=== PATIENT | female | born 1975 | race Caucasian/White ===

== ENCOUNTER 2021-09-10 17:34 | Inpatient (IN) ==
[2021-09-10] MEDS ORDERED: dexAMETHasone**PF** 10 MG/ML VIAL IV ONE ×2 (18:36→18:46)
--- NOTE | 2021-09-10 18:56 | XRay Report ---
XR chest 1V portable HISTORY: 46 years-old Female covid, sob acute shortness of breath. COVID Positive. COMPARISON: None TECHNIQUE: Portable AP view of the chest FINDINGS: The cardiac silhouette is upper limits of normal in size. No pneumothorax or large pleural effusion. Interstitial coarsening with left greater than right patchy bilateral airspace opacities. No acute fr acture. IMPRESSION: Left greater than right bilateral pulmonary opacities are suggestive of viral pneumonia. ACT 112: Negative or not required by law. The above report was generated using voice recognition software. It may contain grammatical, syntax o r spelling errors. Electronically signed by: Antohny Matos M.D. 09/10/2021 6:54 PM
[2021-09-10 20:03] LABS: Mean Corpuscular Hgb Conc 34.4 g/dL (32-36)
[2021-09-10 20:10] LABS: Albumin Level 2.5 gm/dl (3.4-5.0); BUN Creatinine Ratio 15.7 (10-20); C Reactive Protein 10.9 mg/dl (0-0.29); Calcium 8.1 mg/dl (8.5-10.1); Creatinine Clr Calc Pharmacy 62.3 ml/min; Est GFR (African American) 60.9 ml/min; Est GFR (Non-African American) 52.6 ml/min; Potassium 3.8 mmol/L (3.5-5.1)
[2021-09-10 20:11] LABS: D Dimer 1510 ug/L FEU (0-500)
[2021-09-10 20:13] LABS: Albumin Globulin Ratio 0.4 (0.9-2); Bilirubin,Total 0.4 mg/dl (0.2-1); Globulin 5.6 gm/dl (2.5-4.0); Total Protein 8.1 gm/dl (6.4-8.2)
[2021-09-10] MEDS ORDERED: REMDESIVIR 200 MG in SODIUM CHLORIDE 0.9% 210 ML IV STA (20:13)
[2021-09-10 20:23] LABS: Hematocrit (blood only) 41.3 % (37-47); Hemoglobin 14.2 g/dL (12.0-16.0); Mean Corpuscular Volume 87.3 fL (80-100); RDW Standard Deviation 42.2 fL (36.4-46.3); Red Blood Count 4.73 M/uL (4.2-5.4); White Blood Count 6.28 K/uL (4.8-10.8)
[2021-09-10 20:25] LABS: Basophils # (auto) 0.01 K/uL (0-0.2); Basophils % (auto) 0.2 %; Immature Granulocytes # (auto) 0.01 K/uL (0.00-0.02); Immature Granulocytes % (auto) 0.2 %; Lymphocytes # (auto) 0.74 K/uL (1.2-3.4); Lymphocytes % (auto) 11.8 %; Mean Platelet Volume 12.9 fL (7.4-10.4); Monocytes # (auto) 0.62 K/uL (0.11-0.59); Monocytes % (auto) 9.9 %; Neutrophils % (auto) 77.9 %; Platelet Count 86 K/uL (130-400); Platelet Estimate Decreased (Normal)
[2021-09-10] MEDS ORDERED: SODIUM CHLORIDE 0.9% 500 ML IV ONE (20:31)
--- NOTE | 2021-09-10 20:37 | Emergency Department Note ---
History of Present Illness General Chief complaint: Illness Stated complaint: COV+, cough, symptoms not getting better Time Seen by Provider: 09/10/21 18:26 Source: patient Mode of arrival: ambulatory Limitations: no limitations History of Present Illness Maximum Pain Intensity: 10 This patient is a 46-year-old female with past medical history of diabetes, thyroidectomy, who presents to the emergency department for evaluation of cough and shortness of breath. Patient states symptoms have been ongoing for 4 days. She has had body aches, fevers, cough, headache and shortness of breath. She was tested for COVID-19 at [facility] 2 days ago on 09/08 and was found to be positive. Patient states her oxygen levels have been low at home. She has been taking [id number] medications for her symptoms. Home Medications Medication Instructions Recorded Confirmed Type acetaminophen 500 mg tablet 1,000 mg PO Q6H PRN 09/10/21 09/10/21 History benzonatate 100 mg capsule 100 mg PO BID 09/10/21 09/10/21 History dulaglutide 1.5 mg/0.5 mL 1.5 mg SUBCUT WK 09/10/21 09/10/21 History subcutaneous pen injector (Trulicity) ezetimibe 10 mg tablet 10 mg PO HS 09/10/21 09/10/21 History hydrochlorothiazide 12.5 mg capsule 12.5 mg PO HS 09/10/21 09/10/21 History levothyroxine 125 mcg tablet 125 mcg PO QAM 09/10/21 09/10/21 History (Synthroid) lisinopril 2.5 mg tablet 2.5 mg PO HS 09/10/21 09/10/21 History metformin 500 mg tablet,extended 1,000 mg PO HS 09/10/21 09/10/21 History release 24 hr omega-3 fatty acids-fish oil 684 1 cap PO HS 09/10/21 09/10/21 History mg-1,200 mg capsule,delayed release pseudoephedrine-ibuprofen 30 1 tab PO Q4H PRN 09/10/21 09/10/21 History mg-200 mg tablet simvastatin 10 mg tablet 10 mg PO HS 09/10/21 09/10/21 History Allergies Allergy/AdvReac Type Severity Reaction Status Date / Time Penicillins Allergy HIVES Verified 09/10/21 19:06 Past Med/Surg History Medical History Asthma IBS (irritable bowel syndrome) Type 2 diabetes mellitus Surgical History (Updated 09/10/21 @ 20:35 by Carolyn Lo PA-C) H/O thyroidectomy Social History Smoking Status: Never smoker Hx Alcohol Use: No Hx Substance Use: No Preferred Language: Bengali Communication Ability: Effective Fourth Mate Required: No Beliefs That Will Affect Care: None Current Living Situation: Significant Other Current Living Situation Comment: 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 Other Information That Helps Us Care for You: No Feels Safe at Home: Yes Safety Concerns: Feels Safe At This Time Review of Systems A total of 10 systems reviewed and were otherwise negative Physical Exam Vital Signs Vital Signs - 24 hr 09/10/21 18:15 09/10/21 19:26 Temperature 36.4 C L Temperature Source Skin Pulse Rate 100 H Pulse Rate [Finger] 88 Respiratory Rate 18 20 Pulse Oximetry 83 L 97 Oxygen Delivery Method Room Air Nasal Cannula Oxygen Flow Rate 6 Sepsis Recent Fever Within 48 Hours Yes Sepsis New/Unexplained Change in Mental Status No Sepsis Action Taken by Nursing No Action Required VITALS: Vitals are noted on the nurse's note and reviewed by myself. GENERAL: This is a 46-year-old female, acutely ill-appearing, dyspneic. SKIN: The skin was without rashes. EARS: External auditory canals clear, tympanic membranes pearly gómez without erythema or effusion bilaterally. EYES: Pupils equal round and reactive to light and accommodation. NOSE: Patent, turbinates without inflammation or discharge. MOUTH: Mucous membranes moist. Tonsils are not enlarged. Pharynx without lisha thema or exudate. NECK: Supple without nuchal rigidity. No lymphadenopathy. HEART: Regular rate and rhythm without murmurs gallops or rubs. LUNGS: Patient is dyspneic and actively coughing. Lung sounds decreased bilaterally. EXTREMITIES: No pitting edema of the lower extremities. NEURO: Patient was alert and oriented to person place and time. Course Consultations Consultation #1: Dr. Haro - [facility] [place] Administered Medications Discontinued Medications Dexamethasone Sodium Phosphate (DexamethasonePf 10 Mg/Ml Vial) 10 mg IV NOW ONE Stop: 09/10/21 18:37 Last Admin: 09/10/21 20:12 Dose: Not Given Documented by: [id number] Dexamethasone Sodium Phosphate (DexamethasonePf 10 Mg/Ml Vial) 6 mg IV NOW ONE Stop: 09/10/21 18:47 Last Admin: 09/10/21 20:12 Dose: 6 mg Documented by: [id number] Remdesivir 200 mg/ Sodium (Chloride) 250 mls @ 125 mls/hr IV ONE STA; Protocol Stop: 09/10/21 22:12 Last Admin: 09/10/21 21:00 Dose: 125 mls/hr Documented by: [id number] Sodium Chloride (Nss) 500 mls @ 999 mls/hr IV .Q31M ONE Stop: 09/10/21 21:01 Last Admin: 09/10/21 21:01 Dose: 999 mls/hr Documented by: [id number] Ioversol (Optiray 320 125ml) 120 ml IV ONCE ONE Stop: 09/10/21 20:50 Last Admin: 09/10/21 20:49 Dose: 120 ml Documented by: [id number] Medical Decision Making Differential Diagnosis COVID-19, influenza, reactive airway disease, pneumonia, pneumothorax, COPD, CHF, infections, cardiac ischemia, pulmonary embolism, musculoskeletal, gastrointestinal, as well as other pathologies. Home Medications Current Medication List: was personally reviewed by me Laboratory Data Attestation: I reviewed the patient's lab results. Result diagrams: 09/10/21 19:35 09/10/21 19:35 Lab Results 09/10/21 09/10/21 09/10/21 Range/Units 19:35 19:35 19:35 WBC 6.28 (4.8-10.8) K/uL RBC 4.73 (4.2-5.4) M/uL Hgb 14.2 (12.0-16.0) g/dL Hct 41.3 (37-47) % MCV 87.3 (80-100) fL MCH 30.0 (25-34) pg MCHC 34.4 (32-36) g/dL RDW Std Deviation 42.2 (36.4-46.3) fL RDW Coeff of Yoana 13.0 (11.5-14.5) % Plt Count 86 L (130-400) K/uL MPV 12.9 H (7.4-10.4) fL Immature Gran % (Auto) 0.2 % Neut % (Auto) 77.9 % Lymph % (Auto) 11.8 % [place] % (Auto) 9.9 % Eos % (Auto) 0.0 % Baso % (Auto) 0.2 % Neut # (Auto) 4.90 (1.4-6.5) K/uL Lymph # (Auto) 0.74 L (1.2-3.4) K/uL [place] # (Auto) 0.62 H (0.11-0.59) K/uL Eos # (Auto) 0.00 (0-0.5) K/uL Baso # (Auto) 0.01 (0-0.2) K/uL Immature Gran # (Auto) 0.01 (0.00-0.02) K/uL Platelet Estimate Decreased L (Normal) D-Dimer (0-500) ug/L FEU Sodium 134 L (136-145) mmol/L Potassium 3.8 (3.5-5.1) mmol/L Chloride 101 (98-107) mmol/L Carbon Dioxide 24 (21-32) mmol/L Anion Gap 9.0 (3-11) BUN 19 H (7-18) mg/dl Creatinine 1.23 H (0.6-1.2) mg/dl Est Cr Clr Drug Dosing 62.3 ml/min Est GFR ( Amer) 60.9 ml/min Est GFR (Non-Af Amer) 52.6 ml/min BUN/Creatinine Ratio 15.7 (10-20) Glucose 229 H (70-99) mg/dl Calcium 8.1 L (8.5-10.1) mg/dl Total Bilirubin 0.4 (0.2-1) mg/dl AST 33 (15-37) U/L ALT 34 (12-78) U/L Alkaline Phosphatase 42 L (45-117) U/L C-Reactive Protein 10.90 H (0-0.29) mg/dl Total Protein 8.1 (6.4-8.2) gm/dl Albumin 2.5 L (3.4-5.0) gm/dl Globulin 5.6 H (2.5-4.0) gm/dl Albumin/Globulin Ratio 0.4 L (0.9-2) Procalcitonin 0.07 (0-0.5) ng/ml 09/10/21 Range/Units 19:35 WBC (4.8-10.8) K/uL RBC (4.2-5.4) M/uL Hgb (12.0-16.0) g/dL Hct (37-47) % MCV (80-100) fL MCH (25-34) pg MCHC (32-36) g/dL RDW Std Deviation (36.4-46.3) fL RDW Coeff of Yoana (11.5-14.5) % Plt Count (130-400) K/uL MPV (7.4-10.4) fL Immature Gran % (Auto) % Neut % (Auto) % Lymph % (Auto) % [place] % (Auto) % Eos % (Auto) % Baso % (Auto) % Neut # (Auto) (1.4-6.5) K/uL Lymph # (Auto) (1.2-3.4) K/uL [place] # (Auto) (0.11-0.59) K/uL Eos # (Auto) (0-0.5) K/uL Baso # (Auto) (0-0.2) K/uL Immature Gran # (Auto) (0.00-0.02) K/uL Platelet Estimate (Normal) D-Dimer 1510 H* (0-500) ug/L FEU Sodium (136-145) mmol/L Potassium (3.5-5.1) mmol/L Chloride (98-107) mmol/L Carbon Dioxide (21-32) mmol/L Anion Gap (3-11) BUN (7-18) mg/dl Creatinine (0.6-1.2) mg/dl Est Cr Clr Drug Dosing ml/min Est GFR ( Amer) ml/min Est GFR (Non-Af Amer) ml/min BUN/Creatinine Ratio (10-20) Glucose (70-99) mg/dl Calcium (8.5-10.1) mg/dl Total Bilirubin (0.2-1) mg/dl AST (15-37) U/L ALT (12-78) U/L Alkaline Phosphatase (45-117) U/L C-Reactive Protein (0-0.29) mg/dl Total Protein (6.4-8.2) gm/dl Albumin (3.4-5.0) gm/dl Globulin (2.5-4.0) gm/dl Albumin/Globulin Ratio (0.9-2) Procalcitonin (0-0.5) ng/ml Imaging Data Attestation: I personally reviewed and interpreted this imaging study as follows: Radiologist's Impression: Chest X-Ray 09/10/21 18:36 XR chest 1V portable HISTORY: 46 years-old Female covid, sob acute shortness of breath. COVID Posit beck. COMPARISON: None TECHNIQUE: Portable AP view of the chest FINDINGS: The cardiac silhouette is upper limits of normal in size. No pneumothorax or large pleural effusion. Interstitial coarsening with left greater than right patchy bilateral airspace opacities. No acute fracture. IMPRESSION: Left greater than right bilateral pulmonary opacities are suggestive of viral pneumonia. ACT 112: Negative or not required by law. The above report was generated using voice recognition software. It may contain grammatical, syntax or spelling errors. Electronically signed by: Anthony Matos M.D. 09/10/2021 6:54 PM MDM Narrative Continuous registered nurse cardiac telemetry: Order was placed for continuous registered nurse cardiac telemetry. Patient was placed on the registered nurse cardiac telemetry. Patient was noted to be in sinus tachycardia at an initial rate of 100 bpm. The patient is a 46-year-old female who presents today complaining of worsening symptoms of COVID-19. Patient had a positive test 2 days ago as an outpatient. Patient was hypoxic on arrival, placed on oxygen via nasal cannula. D-dimer was found to be elevated, CT angiogram of the chest performed and showed no PE, but was consistent with bilateral viral pneumonia. Patient does have minimal elevation of creatinine at 1.23. Patient does have a thrombocytopenia. She was given 6 mg dexamethasone IV and admitted to the [facility] service for further care. Impression & Plan Pneumonia due to COVID-19 virus, Hypoxia Discharge Plan Visit Data Chief Complaint: Illness Stated Complaint: COV+, cough, symptoms not getting better ED Provider: Jimmie Carter ED Midlevel Provider: Carolyn Lo Discharge Problem: Pneumonia due to COVID-19 virus, Hypoxia Discharge Instructions Interventions: ED Discharge Assessment Last Done: 09/10/21 21:21
[2021-09-10] MEDS ORDERED: OPTIRAY 320 125ml IV ONE (20:49)
--- NOTE | 2021-09-10 20:59 | CT Scan Report ---
CT angio chest PE protocol CT DOSE: 468.22 mGy.cm HISTORY: 46 years-old Female with covid+, elevated dimer. Acute shortness of breath. COVID Positive . TECHNIQUE: Multiple CTA images of the chest were obtained after the intravenous administration of 120 ml Optiray. Coronal and sagittal MIPS were obtained from the axial data set and were submitted for review. All measurements were obtained according to NASCET criteria. A dose lowering technique was u tilized adhering to the principles of ALARA. COMPARISON: Chest radiograph of same day FINDINGS: CTA: Mild cardiomegaly. No pericardial effusion. Unremarkable thoracic aorta. Suboptimal evaluation of the pulmonary artery secondary to respiratory motion artifact. No filling defects are identified to sugg est thromboembolic disease. CT CHEST: Suggested thyroidectomy. Mildly enlarged subcarinal and hilar lymph nodes are likely reactive. No pne umothorax or pleural effusion. Multilobar bilateral distribution of subpleural predominant groundglas s and alveolar opacities with right greater left bibasilar consolidation with air bronchograms. The c entral airways are patent. Hepatosplenomegaly with hepatic steatosis. Mild right hemidiaphragmatic elevation. Unremarkable soft tissues. No acute fracture. IMPRESSION: 1. Cardiomegaly without pulmonary emboli. 2. Moderate to extensive bilateral groundglass and consolidative opacities compatible with viral pneu monia. 3. Mild likely reactive mediastinal and hilar adenopathy. 4. Hepatosplenomegaly with hepatic steatosis. ACT 112: Negative or not required by law. The above report was generated using voice recognition software. It may contain grammatical, syntax o r spelling errors. Electronically signed by: Anthony Matos M.D. 09/10/2021 8:57 PM
--- NOTE | 2021-09-10 21:49 | History & Physical Report ---
Date of Service September 10, 2021 Assessment & Plan (1) Pneumonia due to COVID-19 virus: Plan: COVID-19 pneumonia with hypoxia/asthma- Dexamethasone 6 mg IV every morning Duonebs every 4 hours while awake and every 2 hours when necessary. Remdesivir IV per protocol Azithromycin 500 mg IV daily Guaifenesin extended release 1200 mg p.o. twice daily Vitamin D 1000 international units p.o. daily Zinc sulfate turn 20 mg p.o. daily Lovenox 45 mg subcu every 12 hours Nasal cannula oxygen, titrate to keep pulse ox 92 to 94% (2) Hypoxia: Plan: See above (3) Hyperlipidemia: Plan: Continue Zetia and simvastatin (4) Hypothyroidism associated with surgical procedure: Plan: Hypothyroidism status post thyroidectomy- Continue levothyroxine 125 mcg daily (5) Asthma: Plan: See above (6) Type 2 diabetes mellitus: Plan: Hold Metformin. Place on Accu-Cheks before meals and at bedtime with NovoLog coverage per scale Check hemoglobin A1c History of Present Illness Chief Complaint: The patient presents to the emergency department with complaint of worsening sh ortness of breath, dyspnea exertion and cough after being diagnosed with COVID- 19 pneumonia at [facility] 2 days ago Primary Care Provider: NO PCP The patient is a 46-year-old female with a past medical history including diabetes mellitus type 2, status post thyroidectomy, iatrogenic hypothyroidism, asthma, irritable bowel syndrome, hyperlipidemia and obesity. She developed symptoms 3 days ago, was seen at [facility] emergency department 2 days ago, and was diagnosed with COVID-19 pneumonia at that point, and was sent home with orders to re due to worsening symptoms, she presents to the [facility] ED today. Review of laboratories from [facility] confirms COVID-19 infection. Chest x-ray/CT angiography chest PE protocol: Moderate to extensive bilateral groundglass opacities. No PE. Hepatosplenomegaly. Fatty liver. From the ED the patient received the following: Dexamethasone 10 mg IV, NSS 500 mL Allergies Allergy/AdvReac Type Severity Reaction Status Date / Time Penicillins Allergy HIVES Verified 09/10/21 19:06 Home Medications Medication Instructions Recorded Confirmed Type acetaminophen 500 mg tablet 1,000 mg PO Q6H PRN 09/10/21 09/10/21 History benzonatate 100 mg capsule 100 mg PO BID 09/10/21 09/10/21 History dulaglutide 1.5 mg/0.5 mL 1.5 mg SUBCUT WK 09/10/21 09/10/21 History subcutaneous pen injector (Trulicity) ezetimibe 10 mg tablet 10 mg PO HS 09/10/21 09/10/21 History hydrochlorothiazide 12.5 mg capsule 12.5 mg PO HS 09/10/21 09/10/21 History levothyroxine 125 mcg tablet 125 mcg PO QAM 09/10/21 09/10/21 History (Synthroid) lisinopril 2.5 mg tablet 2.5 mg PO HS 09/10/21 09/10/21 History metformin 500 mg tablet,extended 1,000 mg PO HS 09/10/21 09/10/21 History release 24 hr omega-3 fatty acids-fish oil 684 1 cap PO HS 09/10/21 09/10/21 History mg-1,200 mg capsule,delayed release pseudoephedrine-ibuprofen 30 1 tab PO Q4H PRN 09/10/21 09/10/21 History mg-200 mg tablet simvastatin 10 mg tablet 10 mg PO HS 09/10/21 09/10/21 History Past Med/Surg History Medical History (Updated 09/10/21 @ 22:22 by Gage Haro MD) Asthma Hyperlipidemia Hypothyroidism associated with surgical procedure IBS (irritable bowel syndrome) Type 2 diabetes mellitus Surgical History (Updated 09/10/21 @ 20:35 by Carolyn Lo PA-C) H/O thyroidectomy Social History Smoking Status: Never smoker Hx Alcohol Use: No Hx Substance Use: No Preferred Language: Albanian Communication Ability: Effective Financial Data Analyst Required: No Beliefs That Will Affect Care: None Current Living Situation: Significant Other Current Living Situation Comment: 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 Other Information That Helps Us Care for You: No Feels Safe at Home: Yes Safety Concerns: Feels Safe At This Time Review of Systems Review of Systems: The patient denies chest pain, palpitations, lower extre mity swelling, sore throat, chills, sweats, nausea, vomiting, diarrhea , constipation, abdominal pain, pelvic pain, blood in urine or stool, dysuria, urinary frequency or urgency, lightheadedness, dizziness, memory loss, loss of consciousness, rash, abnormal bruising or bleeding, imbalance, focal weakness, numbness or tingling in arms or legs, generalized arthralgias or myalgias, back or neck pain, or night sweats. The review of systems is otherwise negative other than for that already noted above, and at least 10 systems have been reviewed. Physical Exam Physical Exam: The patient is awake, alert and oriented 3, well developed and well nourished, normocephalic and atraumatic, lying in bed and in no acute distress. Dyspneic with conversation HEENT--PERRL, EOMI, mucous membranes and oropharynx Normal. Neck--supple. No JVD. No bruits. Thyroid normal, trachea midline, no adenopathy. Heart--normal S1 and S2. No murmurs, rubs or gallops. Lungs--coarse breath sounds bilaterally. No respiratory distress, no accessory muscle use. Abdomen--normal bowel sounds and soft. Nontender. Nondistended. Obese Extremities--no cyanosis or clubbing. No edema. Dermatologic--normal skin turgor, normal color, no abnormal lymph nodes, no rash. Neurologic--cranial nerves II through XII grossly intact. Rheumatologic--normal range of motion. Psychiatric--normal affect. Results & Data Results & Data ([facility]) Vital Signs (Past 12 Hours) Vital Signs Temp Pulse Pulse Resp BP Pulse Ox 09/10/21 21:21 82 20 94 09/10/21 21:14 90 20 128/69 96 09/10/21 19:26 88 20 97 09/10/21 18:15 97.5 F L 100 H 18 83 L Laboratory Results Laboratory Results WBC 6.28 K/uL (4.8-10.8) 09/10/21 19:35 RBC 4.73 M/uL (4.2-5.4) 09/10/21 19:35 Hgb 14.2 g/dL (12.0-16.0) 09/10/21 19:35 Hct 41.3 % (37-47) 09/10/21 19:35 MCV 87.3 fL (80-100) 09/10/21 19:35 MCH 30.0 pg (25-34) 09/10/21 19:35 MCHC 34.4 g/dL (32-36) 09/10/21 19:35 RDW Std Deviation 42.2 fL (36.4-46.3) 09/10/21 19:35 RDW Coeff of Yoana 13.0 % (11.5-14.5) 09/10/21 19:35 Plt Count 86 K/uL (130-400) L 09/10/21 19:35 MPV 12.9 fL (7.4-10.4) H 09/10/21 19:35 Immature Gran % (Auto) 0.2 % 09/10/21 19:35 Neut % (Auto) 77.9 % 09/10/21 19:35 Lymph % (Auto) 11.8 % 09/10/21 19:35 [place] % (Auto) 9.9 % 09/10/21 19:35 Eos % (Auto) 0.0 % 09/10/21 19:35 Baso % (Auto) 0.2 % 09/10/21 19:35 Neut # (Auto) 4.90 K/uL (1.4-6.5) 09/10/21 19:35 Lymph # (Auto) 0.74 K/uL (1.2-3.4) L 09/10/21 19:35 [place] # (Auto) 0.62 K/uL (0.11-0.59) H 09/10/21 19:35 Eos # (Auto) 0.00 K/uL (0-0.5) 09/10/21 19:35 Baso # (Auto) 0.01 K/uL (0-0.2) 09/10/21 19:35 Immature Gran # (Auto) 0.01 K/uL (0.00-0.02) 09/10/21 19:35 Platelet Estimate Decreased (Normal) L 09/10/21 19:35 D-Dimer 1510 ug/L FEU (0-500) H* 09/10/21 19:35 Sodium 134 mmol/L (136-145) L 09/10/21 19:35 Potassium 3.8 mmol/L (3.5-5.1) 09/10/21 19:35 Chloride 101 mmol/L (98-107) 09/10/21 19:35 Carbon Dioxide 24 mmol/L (21-32) 09/10/21 19:35 Anion Gap 9.0 (3-11) 09/10/21 19:35 BUN 19 mg/dl (7-18) H 09/10/21 19:35 Creatinine 1.23 mg/dl (0.6-1.2) H 09/10/21 19:35 Est Cr Clr Drug Dosing 62.3 ml/min 09/10/21 19:35 Est GFR ( Amer) 60.9 ml/min 09/10/21 19:35 Est GFR (Non-Af Amer) 52.6 ml/min 09/10/21 19:35 BUN/Creatinine Ratio 15.7 (10-20) 09/10/21 19:35 Glucose 229 mg/dl (70-99) H 09/10/21 19:35 Calcium 8.1 mg/dl (8.5-10.1) L 09/10/21 19:35 Total Bilirubin 0.4 mg/dl (0.2-1) 09/10/21 19:35 AST 33 U/L (15-37) 09/10/21 19:35 ALT 34 U/L (12-78) 09/10/21 19:35 Alkaline Phosphatase 42 U/L (45-117) L 09/10/21 19:35 C-Reactive Protein 10.90 mg/dl (0-0.29) H 09/10/21 19:35 Total Protein 8.1 gm/dl (6.4-8.2) 09/10/21 19:35 Albumin 2.5 gm/dl (3.4-5.0) L 09/10/21 19:35 Globulin 5.6 gm/dl (2.5-4.0) H 09/10/21 19:35 Albumin/Globulin Ratio 0.4 (0.9-2) L 09/10/21 19:35 Procalcitonin 0.07 ng/ml (0-0.5) 09/10/21 19:35 Impressions Chest X-Ray 09/10/21 18:36 XR chest 1V portable HISTORY: 46 years-old Female covid, sob acute shortness of breath. COVID Positive. COMPARISON: None TECHNIQUE: Portable AP view of the chest FINDINGS: The cardiac silhouette is upper limits of normal in size. No pneumothorax or large pleural effusion. Interstitial coarsening with left greater than right patchy bilateral airspace opacities. No acute fracture. IMPRESSION: Left greater than right bilateral pulmonary opacities are suggestive of viral pneumonia. ACT 112: Negative or not required by law. The above report was generated using voice recognition software. It may contain grammatical, syntax or spelling errors. Electronically signed by: Anthony Matos M.D. 09/10/2021 6:54 PM Chest CTA 09/10/21 20:29 CT angio chest PE protocol CT DOSE: 468.22 mGy.cm HISTORY: 46 years-old Female with covid+, elevated dimer. Acute shortness of breath. COVID Positive. TECHNIQUE: Multiple CTA images of the chest were obtained after the intravenous administration of 120 ml Optiray. Coronal and sagittal MIPS were obtained from the axial data set and were submitted for review. All measurements were obtained according to NASCET criteria. A dose lowering technique was utilized adhering to the principles of ALARA. COMPARISON: Chest radiograph of same day FINDINGS: CTA: Mild cardiomegaly. No pericardial effusion. Unremarkable thoracic aorta. Suboptimal evaluation of the pulmonary artery secondary to respiratory motion artifact. No filling defects are identified to suggest thromboembolic disease. CT CHEST: Suggested thyroidectomy. Mildly enlarged subcarinal and hilar lymph nodes are likely reactive. No pneumothorax or pleural effusion. Multilobar bilateral d istribution of subpleural predominant groundglass and alveolar opacities with right greater left bibasilar consolidation with air bronchograms. The central airways are patent. Hepatosplenomegaly with hepatic steatosis. Mild right hemidiaphragmatic elevation. Unremarkable soft tissues. No acute fracture. IMPRESSION: 1. Cardiomegaly without pulmonary emboli. 2. Moderate to extensive bilateral groundglass and consolidative opacities compatible with viral pneumonia. 3. Mild likely reactive mediastinal and hilar adenopathy. 4. Hepatosplenomegaly with hepatic steatosis. ACT 112: Negative or not required by law. The above report was generated using voice recognition software. It may contain grammatical, syntax or spelling errors. Electronically signed by: Anthony Matos M.D. 09/10/2021 8:57 PM Code Status & VTE Plan Code Status Full code VTE Prophylaxis Plan VTE Prophylaxis will be ordered: Yes PG Care Time/CCT Total # of Minutes Spent Total Time Spent with Patient: Total time spent is greater than 50% in coordination of care (as documented) at patient's floor/unit and/or counseling patient: Coding Level of Care Code 05080 Initial Inpt Care Lvl 3 Diagnoses Pneumonia due to COVID-19 virus U07.1; J12.82 Hypoxia R09.02 Hyperlipidemia E78.5 Hypothyroidism associated with surgical procedure E89.0 Asthma J45.909 Type 2 diabetes mellitus E11.9
[2021-09-10] MEDS ORDERED: DEXTROSE 50% 50 ML SYRINGE IV PRN (22:02)
[2021-09-10] MEDS ORDERED: GLUCAGON FOR INJ 1 MG VIAL SQ PRN (22:02)
[2021-09-10] MEDS ORDERED: GLUCOSE 40% GEL 15 GM TUBE PO PRN (22:02)
[2021-09-10] MEDS ORDERED: CARBOHYDRATES FOR HYPOGLYCEMIA PO PRN (22:02)
[2021-09-10] MEDS ORDERED: GLUCOSE 10 TABS/TUBE PO PRN (22:02)
[2021-09-10] MEDS ORDERED: ACETAMINOPHEN HOME PACK 500 MG TABLET PO PRN (22:02)
[2021-09-10] MEDS ORDERED: ONDANSETRON INJ 2 MG/ML 2 ML VIAL IV PRN (22:02)
[2021-09-10] MEDS: ACETAMINOPHEN 325 MG TAB PO PRN (23:06)
[2021-09-10] MEDS: guaiFENesin/CODEINE 100MG/10MG 5ML UDC PO PRN (23:43)
[2021-09-11] MEDS: INSULIN ASPART 100 UNITS/ML 3 ML PEN SC SCH ×5 (00:05→22:03)
[2021-09-11] MEDS: BENZONATATE 100 MG CAPSULE PO SCH ×3 (00:12→20:31)
[2021-09-11] MEDS: SIMVASTATIN 10 MG TAB PO SCH ×2 (00:13→20:30)
[2021-09-11] MEDS: EZETIMIBE 10 MG TABLET PO SCH ×2 (00:13→21:43)
[2021-09-11] MEDS: OMEGA-3 (PURIFIED FISH OIL) 1 GM CAP PO SCH ×2 (00:13→20:30)
[2021-09-11] MEDS: ENOXAPARIN INJ 60 MG/0.6 ML SYR SQ SCH ×3 (00:14→21:44)
[2021-09-11] MEDS: SODIUM CHLORIDE 0.9% 10ML FLUSH IV SCH ×2 (00:15→21:44)
[2021-09-11] MEDS: LEVOTHYROXINE SODIUM 125 MCG TABLET PO SCH (06:22)
[2021-09-11] MEDS: ALBUT/IPRATROP 3MG/0.5MG NEB 3 ML VIAL NEB SCH ×4 (07:21→19:15)
--- NOTE | 2021-09-11 07:57 | Hospitalist Progress Note ---
Date of Service September 11, 2021 Assessment & Plan (1) Pneumonia due to COVID-19 virus: Plan: COVID-19 pneumonia with hypoxia/asthma- Dexamethasone 6 mg IV Duonebs every 4 hours while awake and every 2 hours when necessary. Remdesivir IV per protocol Azithromycin 500 mg IV daily Guaifenesin extended release 1200 mg p.o. twice daily Vitamin D 1000 international units p.o. daily Zinc sulfate turn 20 mg p.o. daily Lovenox 45 mg subcu every 12 hours Nasal cannula oxygen, titrate to keep pulse ox 92 to 94%, oxygen requirement has increased over last few hours [place] proning (2) Hypoxia: Plan: See above (3) Hyperlipidemia: Plan: Continue Zetia and simvastatin (4) Hypothyroidism associated with surgical procedure: Plan: Hypothyroidism status post thyroidectomy- Continue levothyroxine 125 mcg daily (5) Asthma: Plan: See above (6) Type 2 diabetes mellitus: Plan: Hold Metformin. Place on Accu-Cheks before meals and at bedtime with NovoLog coverage per scale added nph to cover steroids Checked hemoglobin A1c- 8.0 Admission and Anticipated Discharge Date Admission Date: September 10, 2021 Subjective Patient is fatigued and dyspneic lying on her side cannot lay on her abdomen or prone very well because of abdominal discomfort Review of Systems Review of Systems: Mild distress and fatigue no headache, no visual changes no speech or swallowing issues no chest pain, pressure or palpitations shortness of breath, non productive cough no wheezes some abdominal pain when laying prone,no nausea or vomiting,resolved diarrhea no dysuria, hematuria or frequency no focal joint pain or swelling no back pain, CVA tenderness or radicular pain no bruising, bleeding or rashes no focal signs of weakness or numbness or altered sensation no complaints of anxiety or depression.. Physical Exam Physical Exam: The patient appeared well nourished and normally developed. Vital signs as documented. Head exam is normocephalic atraumatic Neck is without JVD, thyromegaly, or carotid bruits. Lungs are crackles bilaterally Cardiac exam, Rhythm is regular.. No murmurs, rubs or gallops. Abdominal exam reveals normal bowel sounds, soft some reproduced abdominal tenderness Extremities are nonedematous and both pedal pulses are present Neurologic exam is alert and oriented, no focal loss of strength or sensation Skin is without bruises or rashes Psychologically is without concerns for anxiety or depression.. Results & Data Results & Data ([facility]) Vital Signs (Past 12 Hours) Vital Signs Temp Pulse Pulse Resp BP Pulse Ox 09/11/21 07:31 97.5 F L 68 20 117/74 90 09/11/21 07:22 78 16 91 09/11/21 04:12 97.7 F 65 16 136/78 96 09/11/21 00:35 81 09/11/21 00:18 98.8 F 09/10/21 22:03 102.2 F H 84 16 139/84 92 09/10/21 21:21 82 20 94 09/10/21 21:14 90 20 128/69 96 PG Care Time/CCT Total # of Minutes Spent Total Time Spent with Patient: Total time spent is greater than 50% in coordination of care (as documented) at patient's floor/unit and/or counseling patient: Coding Level of Care Code 58936 Subseq Hosp Care Lvl 3 Diagnoses Pneumonia due to COVID-19 virus U07.1; J12.82 Hypoxia R09.02 Hyperlipidemia E78.5 Hypothyroidism associated with surgical procedure E89.0 Asthma J45.909 Type 2 diabetes mellitus E11.9
[2021-09-11] MEDS: CHOLECALCIFEROL 1,000 UNITS 25 MCG TAB PO SCH (08:00)
[2021-09-11] MEDS: ZINC SULFATE 220 MG CAPSULE PO SCH (08:00)
[2021-09-11] MEDS: dexAMETHasone 6 MG in SYRINGE 0 ML IV SCH (08:00)
[2021-09-11] MEDS: AZITHROMYCIN 500 MG in DEXTROSE 5% 250 ML IV SCH (08:03)
[2021-09-11] MEDS: guaiFENesin/CODEINE 100MG/10MG 5ML UDC PO PRN ×3 (08:16→20:29)
[2021-09-11 09:15] LABS: Albumin Globulin Ratio 0.4 (0.9-2); Albumin Level 2.5 gm/dl (3.4-5.0); BUN Creatinine Ratio 18.5 (10-20); Bilirubin,Total 0.5 mg/dl (0.2-1); Calcium 8.6 mg/dl (8.5-10.1); Est GFR (African American) 73.8 ml/min; Est GFR (Non-African American) 63.6 ml/min; Globulin 5.9 gm/dl (2.5-4.0); Total Protein 8.4 gm/dl (6.4-8.2)
[2021-09-11 09:24] LABS: Magnesium 2.3 mg/dl (1.8-2.4); Potassium 4.5 mmol/L (3.5-5.1)
[2021-09-11 09:54] LABS: Basophils # (auto) 0.01 K/uL (0-0.2); Basophils % (auto) 0.2 %; Hematocrit (blood only) 44.6 % (37-47); Hemoglobin 15.4 g/dL (12.0-16.0); Immature Granulocytes # (auto) 0.02 K/uL (0.00-0.02); Immature Granulocytes % (auto) 0.5 %; Lymphocytes # (auto) 0.72 K/uL (1.2-3.4); Lymphocytes % (auto) 17.2 %; Mean Corpuscular Hemoglobin 30.5 pg (25-34); Mean Corpuscular Hgb Conc 34.5 g/dL (32-36); Mean Corpuscular Volume 88.3 fL (80-100); Mean Platelet Volume 12.8 fL (7.4-10.4); Monocytes # (auto) 0.44 K/uL (0.11-0.59); Monocytes % (auto) 10.5 %; Neutrophils # (auto) 2.99 K/uL (1.4-6.5); Neutrophils % (auto) 71.6 %; Platelet Count 94 K/uL (130-400); Platelet Estimate Decreased (Normal); RDW Coefficient of Variation 13.2 % (11.5-14.5); RDW Standard Deviation 42.6 fL (36.4-46.3); Red Blood Count 5.05 M/uL (4.2-5.4); White Blood Count 4.18 K/uL (4.8-10.8)
[2021-09-11 10:43] LABS: Estimated Average Glucose 183 mg/dl
[2021-09-11] MEDS ORDERED: INSULIN HUMAN NPH SC ONE (12:30)
[2021-09-11] MEDS: REMDESIVIR 100 MG in SODIUM CHLORIDE 0.9% 230 ML IV SCH (20:29)
[2021-09-12] MEDS: guaiFENesin/CODEINE 100MG/10MG 5ML UDC PO PRN ×3 (02:21→22:26)
[2021-09-12] MEDS: ALBUT/IPRATROP 3MG/0.5MG NEB 3 ML VIAL NEB SCH (05:36)
[2021-09-12] MEDS: ACETAMINOPHEN 325 MG TAB PO PRN (05:56)
[2021-09-12] MEDS: LEVOTHYROXINE SODIUM 125 MCG TABLET PO SCH (05:56)
[2021-09-12] MEDS: dexAMETHasone 6 MG in SYRINGE 0 ML IV SCH (08:40)
[2021-09-12] MEDS: AZITHROMYCIN 500 MG in DEXTROSE 5% 250 ML IV SCH (08:43)
[2021-09-12] MEDS: CHOLECALCIFEROL 1,000 UNITS 25 MCG TAB PO SCH (08:46)
[2021-09-12] MEDS: BENZONATATE 100 MG CAPSULE PO SCH ×2 (08:46→19:47)
[2021-09-12] MEDS: ZINC SULFATE 220 MG CAPSULE PO SCH (08:46)
[2021-09-12] MEDS ORDERED: INSULIN HUMAN NPH SC SCH (09:00)
[2021-09-12] MEDS: INSULIN ASPART 100 UNITS/ML 3 ML PEN SC SCH ×4 (10:16→21:05)
[2021-09-12] MEDS ORDERED: ALBUT/IPRATROP 3MG/0.5MG NEB 3 ML VIAL NEB PRN (10:26)
[2021-09-12] MEDS: ENOXAPARIN INJ 60 MG/0.6 ML SYR SQ SCH ×2 (12:23→22:14)
[2021-09-12 14:08] LABS: Hematocrit (blood only) 43.1 % (37-47); Hemoglobin 14.9 g/dL (12.0-16.0); Mean Corpuscular Hemoglobin 30.2 pg (25-34); Mean Corpuscular Hgb Conc 34.6 g/dL (32-36); Mean Corpuscular Volume 87.2 fL (80-100); Mean Platelet Volume 13.1 fL (7.4-10.4); Platelet Count 146 K/uL (130-400); RDW Coefficient of Variation 13.2 % (11.5-14.5); RDW Standard Deviation 42.2 fL (36.4-46.3); Red Blood Count 4.94 M/uL (4.2-5.4); White Blood Count 9.55 K/uL (4.8-10.8)
[2021-09-12 14:09] LABS: Immature Granulocytes # (auto) 0.03 K/uL (0.00-0.02); Immature Granulocytes % (auto) 0.3 %; Lymphocytes # (auto) 0.95 K/uL (1.2-3.4); Lymphocytes % (auto) 9.9 %; Monocytes # (auto) 0.76 K/uL (0.11-0.59); Neutrophils # (auto) 7.81 K/uL (1.4-6.5); Neutrophils % (auto) 81.8 %; Platelet Estimate Normal (Normal)
[2021-09-12 15:07] LABS: Albumin Globulin Ratio 0.4 (0.9-2); Albumin Level 2.3 gm/dl (3.4-5.0); BUN Creatinine Ratio 23.5 (10-20); Bilirubin,Total 0.4 mg/dl (0.2-1); Calcium 8.7 mg/dl (8.5-10.1); Creatinine Clr Calc Pharmacy 59.2 ml/min; Est GFR (Non-African American) 49.2 ml/min; Globulin 5.5 gm/dl (2.5-4.0); Magnesium 2.5 mg/dl (1.8-2.4); Total Protein 7.8 gm/dl (6.4-8.2)
[2021-09-12 15:20] LABS: Potassium 3.8 mmol/L (3.5-5.1)
[2021-09-12] MEDS ORDERED: INSULIN HUMAN NPH SC ONE (15:40)
[2021-09-12] MEDS ORDERED: FUROSEMIDE INJ 20 MG/2 ML VIAL IV ONE (15:46)
[2021-09-12 15:47] LABS: Beta-Hydroxybutyrate 1.22 mg/dl (0.2-2.81)
--- NOTE | 2021-09-12 15:51 | Hospitalist Progress Note ---
Date of Service September 12, 2021 Assessment & Plan (1) Pneumonia due to COVID-19 virus: Plan: COVID-19 pneumonia with hypoxia/asthma- Dexamethasone 6 mg IV Duonebs every 4 hours while awake and every 2 hours when necessary. Remdesivir IV per protocol Azithromycin 500 mg IV daily Guaifenesin extended release 1200 mg p.o. twice daily Vitamin D 1000 international units p.o. daily Zinc sulfate turn 20 mg p.o. daily Lovenox 45 mg subcu every 12 hours 09/12/21, now pt has moved to vapotherm high flow oxygen given lasix dose x 1 encourage proning, does much better with proning (2) Hypoxia: Plan: See above (3) Hyperlipidemia: Plan: Continue Zetia and simvastatin (4) Hypothyroidism associated with surgical procedure: Plan: Hypothyroidism status post thyroidectomy- Continue levothyroxine 125 mcg daily (5) Asthma: Plan: See above (6) Type 2 diabetes mellitus: Plan: Hold Metformin. Place on Accu-Cheks before meals and at bedtime with NovoLog coverage per scale added nph to cover steroids . additional adjustments made 09/12 Checked hemoglobin A1c- 8.0 Admission and Anticipated Discharge Date Admission Date: September 10, 2021 Subjective Patient had significant escalation in requirement of oxygen overnight now on humidified Vapotherm at 85 L 90%. She does much better laying on her abdomen or proning that she is laying on her back. Otherwise has no complaints or problems other than having her menstrual period today which she does not have very frequently Review of Systems Review of Systems: Mild distress and fatigue no headache, no visual changes no speech or swallowing issues no chest pain, pressure or palpitations shortness of breath, non productive cough no wheezes some abdominal pain when laying prone,no nausea or vomiting,resolved diarrhea no dysuria, hematuria or frequency no focal joint pain or swelling no back pain, CVA tenderness or radicular pain no bruising, bleeding or rashes no focal signs of weakness or numbness or altered sensation no complaints of anxiety or depression.. Physical Exam Physical Exam: The patient appeared well nourished and normally developed. Vital signs as documented. Head exam is normocephalic atraumatic Neck is without JVD, thyromegaly, or carotid bruits. Lungs are crackles bilaterally Cardiac exam, Rhythm is regular.. No murmurs, rubs or gallops. Abdominal exam reveals normal bowel sounds, soft some reproduced abdominal tenderness Extremities are nonedematous and both pedal pulses are present Neurologic exam is alert and oriented, no focal loss of strength or sensation Skin is without bruises or rashes Psychologically is without concerns for anxiety or depression.. Results & Data Results & Data ([facility]) Vital Signs (Past 12 Hours) Vital Signs Temp Pulse Resp BP Pulse Ox 09/12/21 15:09 97.7 F 70 22 102/66 93 09/12/21 11:38 70 26 H 91 09/12/21 10:56 98.1 F 61 20 127/80 96 09/12/21 07:56 97.3 F L 67 20 106/67 90 09/12/21 05:38 61 28 H 87 L PG Care Time/CCT Total # of Minutes Spent Total Time Spent with Patient: Total time spent is greater than 50% in coordination of care (as documented) at patient's floor/unit and/or counseling patient: Coding Level of Care Code 72477 Subseq Hosp Care Lvl 3 Diagnoses Pneumonia due to COVID-19 virus U07.1; J12.82 Hypoxia R09.02 Hyperlipidemia E78.5 Hypothyroidism associated with surgical procedure E89.0 Asthma J45.909 Type 2 diabetes mellitus E11.9
[2021-09-12] MEDS: REMDESIVIR 100 MG in SODIUM CHLORIDE 0.9% 230 ML IV SCH (19:45)
[2021-09-12] MEDS: SODIUM CHLORIDE 0.9% 10ML FLUSH IV SCH (19:46)
[2021-09-12] MEDS: EZETIMIBE 10 MG TABLET PO SCH (19:48)
[2021-09-12] MEDS: OMEGA-3 (PURIFIED FISH OIL) 1 GM CAP PO SCH (19:48)
[2021-09-12] MEDS: SIMVASTATIN 10 MG TAB PO SCH (19:49)
[2021-09-13] MEDS: guaiFENesin/CODEINE 100MG/10MG 5ML UDC PO PRN ×3 (04:07→20:22)
[2021-09-13] MEDS: LEVOTHYROXINE SODIUM 125 MCG TABLET PO SCH (06:03)
[2021-09-13] MEDS ORDERED: INSULIN HUMAN NPH SC SCH (09:00)
[2021-09-13] MEDS: BENZONATATE 100 MG CAPSULE PO SCH ×2 (09:46→20:22)
[2021-09-13] MEDS: AZITHROMYCIN 500 MG in DEXTROSE 5% 250 ML IV SCH (09:46)
[2021-09-13] MEDS: CHOLECALCIFEROL 1,000 UNITS 25 MCG TAB PO SCH (09:47)
[2021-09-13] MEDS: ZINC SULFATE 220 MG CAPSULE PO SCH (09:47)
[2021-09-13] MEDS: dexAMETHasone 6 MG in SYRINGE 0 ML IV SCH (09:47)
[2021-09-13] MEDS: INSULIN ASPART 100 UNITS/ML 3 ML PEN SC SCH ×4 (09:54→21:35)
[2021-09-13] MEDS: ENOXAPARIN INJ 60 MG/0.6 ML SYR SQ SCH ×2 (11:31→22:16)
--- NOTE | 2021-09-13 15:13 | Hospitalist Progress Note ---
Date of Service September 13, 2021 Assessment & Plan (1) Pneumonia due to COVID-19 virus: Plan: COVID-19 pneumonia with hypoxia/asthma-has had increased oxygen requirements Dexamethasone 6 mg IV Duonebs every 4 hours while awake and every 2 hours when necessary. Remdesivir IV per protocol in the afternoon of 09/13, i discussed Baricitinib with Dr See who flet that there was no defined benefit with recent literature, but will try at this time Guaifenesin extended release 1200 mg p.o. twice daily Vitamin D 1000 international units p.o. daily Zinc sulfate turn 20 mg p.o. daily Lovenox 45 mg subcu every 12 hours 09/12/21, now pt has moved to vapotherm high flow oxygen given lasix dose x 1 encourage proning, does much better with proning (2) Hypoxia: Plan: See above (3) Hyperlipidemia: Plan: Continue Zetia and simvastatin (4) Hypothyroidism associated with surgical procedure: Plan: Hypothyroidism status post thyroidectomy- Continue levothyroxine 125 mcg daily (5) Asthma: Plan: See above (6) Type 2 diabetes mellitus: Plan: Hold Metformin. Place on Accu-Cheks before meals and at bedtime with NovoLog coverage per scale added nph to cover steroids . additional adjustments made 09/13 Checked hemoglobin A1c- 8.0 Admission and Anticipated Discharge Date Admission Date: September 10, 2021 Subjective Patient had significant escalation in requirement of oxygen remains on humidified Vapotherm at 35 L 85%. She does much better laying on her abdomen or proning that she is laying on her back. she is trying to lay prone she is becoming frustrated with being ill, requests no additional blood draws Review of Systems Review of Systems: moderate respiratory distress and fatigue no headache, no visual changes no speech or swallowing issues no chest pain, pressure or palpitations shortness of breath, non productive cough no wheezes some abdominal pain when laying prone,no nausea or vomiting,resolved diarrhea no dysuria, hematuria or frequency no focal joint pain or swelling no back pain, CVA tenderness or radicular pain no bruising, bleeding or rashes no focal signs of weakness or numbness or altered sensation no complaints of anxiety or depression.. Physical Exam Physical Exam: The patient appeared fatigued and frustrated Vital signs as documented. Head exam is normocephalic atraumatic Neck is without JVD, thyromegaly, or carotid bruits. Lungs are crackles bilaterally, persistently Cardiac exam, Rhythm is regular.. No murmurs, rubs or gallops. Abdominal exam reveals normal bowel sounds, soft some reproduced abdominal tenderness Extremities are nonedematous and both pedal pulses are present Neurologic exam is alert and oriented, no focal loss of strength or sensation Skin is without bruises or rashes Psychologically is without concerns for anxiety or depression.. Results & Data Results & Data ([facility]) Vital Signs (Past 12 Hours) Vital Signs Temp Pulse Pulse Pulse Resp BP BP 09/13/21 14:17 72 20 09/13/21 12:00 66 09/13/21 11:26 97.7 F 79 18 114/79 09/13/21 10:52 70 19 09/13/21 08:32 97.5 F L 64 117/77 09/13/21 08:25 76 22 09/13/21 08:00 67 09/13/21 04:49 73 09/13/21 04:27 97.7 F 68 20 111/75 09/13/21 04:23 84 24 Pulse Ox 09/13/21 14:17 90 09/13/21 12:00 98 09/13/21 11:26 85 L 09/13/21 10:52 90 09/13/21 08:32 91 09/13/21 08:25 89 L 09/13/21 08:00 09/13/21 04:49 09/13/21 04:27 85 L 09/13/21 04:23 91 PG Care Time/CCT Total # of Minutes Spent Total Time Spent with Patient: Total time spent is greater than 50% in coordination of care (as documented) at patient's floor/unit and/or counseling patient: Coding Level of Care Code 54057 Subseq Hosp Care Lvl 3 Diagnoses Pneumonia due to COVID-19 virus U07.1; J12.82 Hypoxia R09.02 Hyperlipidemia E78.5 Hypothyroidism associated with surgical procedure E89.0 Asthma J45.909 Type 2 diabetes mellitus E11.9
[2021-09-13] MEDS ORDERED: BARICITINIB COMMUNICATION ONE (15:27)
[2021-09-13] MEDS: 2mg Daily x 14 days (eGFR 30-59 mL/min/1.73m2) PO SCH (16:41)
[2021-09-13] MEDS: REMDESIVIR 100 MG in SODIUM CHLORIDE 0.9% 230 ML IV SCH (20:21)
[2021-09-13] MEDS: SODIUM CHLORIDE 0.9% 10ML FLUSH IV SCH (20:21)
[2021-09-13] MEDS: EZETIMIBE 10 MG TABLET PO SCH (20:22)
[2021-09-13] MEDS: SIMVASTATIN 10 MG TAB PO SCH (20:23)
[2021-09-13] MEDS: OMEGA-3 (PURIFIED FISH OIL) 1 GM CAP PO SCH (20:23)
[2021-09-13] MEDS: ACETAMINOPHEN 325 MG TAB PO PRN (21:32)
[2021-09-14] MEDS: LEVOTHYROXINE PO SCH (06:13)
[2021-09-14] MEDS ORDERED: LEVOTHYROXINE PO SCH (06:30)
[2021-09-14] MEDS: 2mg Daily x 14 days (eGFR 30-59 mL/min/1.73m2) PO SCH (09:46)
[2021-09-14] MEDS: CHOLECALCIFEROL 1,000 UNITS 25 MCG TAB PO SCH (09:47)
[2021-09-14] MEDS: ZINC SULFATE 220 MG CAPSULE PO SCH (09:47)
[2021-09-14] MEDS: BENZONATATE 100 MG CAPSULE PO SCH ×2 (09:47→20:15)
[2021-09-14] MEDS: dexAMETHasone 6 MG in SYRINGE 0 ML IV SCH (09:47)
[2021-09-14] MEDS: INSULIN HUMAN NPH SC SCH (09:50)
[2021-09-14] MEDS: INSULIN ASPART 100 UNITS/ML 3 ML PEN SC SCH ×4 (09:51→21:33)
[2021-09-14] MEDS: ENOXAPARIN INJ 60 MG/0.6 ML SYR SQ SCH ×2 (11:40→22:40)
[2021-09-14] MEDS ORDERED: FUROSEMIDE INJ 20 MG/2 ML VIAL IV ONE (14:50)
[2021-09-14] MEDS ORDERED: POTASSIUM CHLORIDE CRTAB 20 MEQ TABCR PO STA (14:50)
--- NOTE | 2021-09-14 14:51 | Hospitalist Progress Note ---
Date of Service September 14, 2021 Assessment & Plan (1) Pneumonia due to COVID-19 virus: Plan: COVID-19 pneumonia with hypoxia Dexamethasone 6 mg IV daily, day 5 Remdesivir IV per protocol, day 5 Baricitinib 2mg daily, day 2 Guaifenesin extended release 1200 mg p.o. twice daily Vitamin D 1000 international units p.o. daily Zinc sulfate turn 20 mg p.o. daily Lovenox 45 mg subcu every 12 hours Lasix 20mg IV today, keep negative fluid balance encourage to prone, lay on her side breathing easier today, short term goal is to get her off high flow (2) Hypoxia: Plan: acute hypoxic respiratory failure, due to COVID pneumonia stable on 40L and 90% continue treatment for COVID Lasix for negative fluid balance (3) Hyperlipidemia: Plan: Continue Zetia and simvastatin (4) Hypothyroidism associated with surgical procedure: Plan: Hypothyroidism status post thyroidectomy- Continue levothyroxine 125 mcg daily (5) Asthma: Plan: See above (6) Type 2 diabetes mellitus: Plan: Hold Metformin. Place on Accu-Cheks before meals and at bedtime with NovoLog coverage per scale added nph to cover steroids . additional adjustments made 09/13 Checked hemoglobin A1c- 8.0 sugars > 300 today, add Lantus 10 units PM Admission and Anticipated Discharge Date Admission Date: September 10, 2021 Subjective patient says she feels better today, she says she feels "more human" breathing easier, she is on 40L and 90%, coughing less discussed trying a dose of Lasix to make her urinate more, dry out lungs, she knows plan she is eating a little better encouraged her to focus on what she can control, eating well and laying on her side or prone she says it is tough to lay prone with the high flow, told her the RN can help discussed that it will take 7-10 days to recover, maybe more, try to be patient reviewed chart and recent labs Review of Systems Review of Systems: All systems reviewed & are unremarkable except as noted in Subjective Respiratory: + cough, + dyspnea and + dyspnea on exertion Physical Exam Physical Exam: General: well developed, well nourished, no acute distress, comfortable Neck: supple, trachea midline, normal thyroid Lungs: clear to auscultation bilaterally, slightly tachypneic, no accessory m uscle use, no distress Heart: regular S1 and S2, no murmur, peripheral pulses normal, capillary refill normal, no edema Abdomen: soft, NT, ND, + BS, no hepatomegaly, normal to percussion Extremities: normal in appearance, no cyanosis, no petechiae, strength is 5/5 bilaterally Neuro: awake, cooperative, moves all extremities, no focal motor deficits, CN II-XII intact, sensation in extremities intact, normal speech Skin: warm, dry, no rash, normal turgor Psych: Awake, alert oriented x 3, euthymic affect Results & Data Results & Data ([facility]) Vital Signs (Past 12 Hours) Vital Signs Temp Pulse Pulse Pulse Resp BP Pulse Ox 09/14/21 12:06 36.8 C 58 L 21 128/75 92 09/14/21 11:38 61 20 89 L 09/14/21 08:00 46 L 09/14/21 07:25 36.5 C 60 20 128/85 89 L 09/14/21 06:32 59 L 22 92 09/14/21 03:54 36.5 C 59 L 19 123/78 90 Laboratory Results Laboratory Results - last 24 hr 09/13/21 09/13/21 09/14/21 16:44 21:16 08:10 POC Glucose 186 H 251 H 222 H 09/14/21 12:08 POC Glucose 250 H Medications Administered Current Inpatient Medications Acetaminophen (Acetaminophen 325 Mg Tab) 650 mg PO Q4H PRN PRN Reason: Pain or Fever Stop: 10/10/21 22:01 Last Admin: 09/13/21 21:32 Dose: 650 mg Documented by: Albuterol (Albut/Ipratrop 3mg/0.5mg Neb 3 Ml Vial) 3 ml NEB QIDR PRN PRN Reason: Shortness Of Breath Or Wheezing Stop: 10/11/21 06:59 Baricitinib (2mg Daily X 14 Days (Egfr 30-59 Ml/Min/1.73m2)) 2 mg PO DAILY VIJAYA; Protocol Stop: 09/27/21 15:59 Last Admin: 09/14/21 09:46 Dose: 2 mg Documented by: Benzonatate (Benzonatate 100 Mg Capsule) 100 mg PO BID VIJAYA Stop: 10/10/21 22:01 Last Admin: 09/14/21 09:47 Dose: 100 mg Documented by: Dextrose (Dextrose 50% 50 Ml Syringe) 25 - 50 ml IV UD PRN; Protocol PRN Reason: Hypoglycemia Protocol Stop: 10/10/21 22:01 Ezetimibe (Ezetimibe 10 Mg Tablet) 10 mg PO HS VIJAYA Stop: 10/10/21 22:01 Last Admin: 09/13/21 20:22 Dose: 10 mg Documented by: Enoxaparin Sodium (Enoxaparin Inj 60 Mg/0.6 Ml Syr) 50 mg SQ Q12H VIJAYA Stop: 10/10/21 22:59 Last Admin: 09/14/21 11:40 Dose: 50 mg Documented by: Fish Oil (Omar-3 (Purified Fish Oil) 1 Gm Cap) 1 gm PO HS VIJAYA Stop: 10/10/21 22:01 Last Admin: 09/13/21 20:23 Dose: 1 gm Documented by: Glucagon (Glucagon For Inj 1 Mg Vial) 1 mg SQ UD PRN; Protocol PRN Reason: Hypoglycemia Protocol Stop: 10/10/21 22:01 Glucose (Glucose 10 Tabs/Tube) 4 - 8 tabs PO UD PRN; Protocol PRN Reason: Hypoglycemia Protocol Stop: 10/10/21 22:01 Glucose (Glucose 40% Gel 15 Gm Tube) 15 - 30 gm PO UD PRN; Protocol PRN Reason: Hypoglycemia Protocol Stop: 10/10/21 22:01 Guaifenesin/Codeine Phosphate (Guaifenesin/Codeine 100mg/10mg 5ml Udc) 5 ml PO Q3H PRN PRN Reason: Cough Stop: 10/10/21 22:01 Last Admin: 09/13/21 20:22 Dose: 5 ml Documented by: Dexamethasone 6 mg/ Syringe 1.5 mls @ 1 mls/min IV Q24H VIJAYA Stop: 10/11/21 08:59 Last Admin: 09/14/21 09:47 Dose: 1 mls/min Documented by: Remdesivir 100 mg/ Sodium (Chloride) 250 mls @ 250 mls/hr IV Q24H [facility]; Protocol Stop: 09/14/21 20:59 Last Infusion: 09/13/21 21:38 Dose: Infused Documented by: Insulin Aspart (Insulin Aspart 100 Units/Ml 3 Ml Pen) 0 units SC ACHS [facility] Stop: 10/10/21 22:29 Last Admin: 09/14/21 12:36 Dose: 10 units Documented by: Insulin Human NPH (Insulin Human Nph) 36 units SC DAILY [facility] Stop: 10/14/21 08:59 Last Admin: 09/14/21 09:50 Dose: 36 units Documented by: Levothyroxine Sodium (Pt's Own Med: *Brand Synthroid* 125 Mcg Tablet) 125 mcg PO DAILYBB [facility] Stop: 10/14/21 06:29 Last Admin: 09/14/21 06:13 Dose: 125 mcg Documented by: Miscellaneous (Carbohydrates For Hypoglycemia ) 15 - 30 gm PO UD PRN PRN Reason: Hypoglycemia Protocol Stop: 10/10/21 22:01 Ondansetron HCl (Ondansetron Inj 2 Mg/Ml 2 Ml Vial) 4 mg IV Q6H PRN PRN Reason: Nausea Stop: 10/10/21 22:01 Simvastatin (Simvastatin 10 Mg Tab) 10 mg PO HS [facility] Stop: 10/10/21 22:01 Last Admin: 09/13/21 20:23 Dose: 10 mg Documented by: Sodium Chloride (Sodium Chloride 0.9% 10ml Flush) 30 ml IV Q24H VIJAYA Stop: 09/14/21 23:01 Last Admin: 09/13/21 20:21 Dose: 30 ml Documented by: Vitamin D (Cholecalciferol 1,000 Units 25 Mcg Tab) 1,000 units PO QAM [facility] Stop: 10/11/21 08:59 Last Admin: 09/14/21 09:47 Dose: 1,000 units Documented by: Zinc Sulfate (Zinc Sulfate 220 Mg Capsule) 220 mg PO QAM VIJAYA Stop: 10/11/21 08:59 Last Admin: 09/14/21 09:47 Dose: 220 mg Documented by: PG Care Time/CCT Total # of Minutes Spent Total Time Spent: 32 Total Time Spent with Patient: Total time spent is greater than 50% in coordination of care (as documented) at patient's floor/unit and/or counseling patient: Coding Level of Care Code 00996 Subseq Hosp Care Lvl 3 (25 - SIGNIFICANT, SEPARATELY IDENTIFIABLE ) Diagnoses Pneumonia due to COVID-19 virus U07.1; J12.82 Hypoxia R09.02 Hyperlipidemia E78.5 Hypothyroidism associated with surgical procedure E89.0 Asthma J45.909 Type 2 diabetes mellitus E11.9
[2021-09-14] MEDS: SODIUM CHLORIDE 0.9% 10ML FLUSH IV SCH (20:12)
[2021-09-14] MEDS: REMDESIVIR 100 MG in SODIUM CHLORIDE 0.9% 230 ML IV SCH (20:12)
[2021-09-14] MEDS: OMEGA-3 (PURIFIED FISH OIL) 1 GM CAP PO SCH (20:15)
[2021-09-14] MEDS: SIMVASTATIN 10 MG TAB PO SCH (20:15)
[2021-09-14] MEDS: EZETIMIBE 10 MG TABLET PO SCH (20:15)
[2021-09-14] MEDS: guaiFENesin/CODEINE 100MG/10MG 5ML UDC PO PRN (20:17)
[2021-09-14] MEDS ORDERED: LANTUS PER UNIT CHARGE SQ STA (21:19)
[2021-09-15] MEDS: LEVOTHYROXINE PO SCH (06:14)
[2021-09-15] MEDS ORDERED: POTASSIUM CHLORIDE CRTAB 20 MEQ TABCR PO STA (08:07)
[2021-09-15] MEDS ORDERED: FUROSEMIDE INJ 20 MG/2 ML VIAL IV ONE (08:30)
[2021-09-15] MEDS: BENZONATATE 100 MG CAPSULE PO SCH ×2 (08:57→21:04)
[2021-09-15] MEDS: 2mg Daily x 14 days (eGFR 30-59 mL/min/1.73m2) PO SCH (08:57)
[2021-09-15] MEDS: dexAMETHasone 6 MG in SYRINGE 0 ML IV SCH (08:58)
[2021-09-15] MEDS: ZINC SULFATE 220 MG CAPSULE PO SCH (08:59)
[2021-09-15] MEDS: CHOLECALCIFEROL 1,000 UNITS 25 MCG TAB PO SCH (08:59)
[2021-09-15] MEDS: INSULIN HUMAN NPH SC SCH (09:19)
[2021-09-15] MEDS: INSULIN ASPART 100 UNITS/ML 3 ML PEN SC SCH ×4 (09:20→21:00)
--- NOTE | 2021-09-15 09:39 | Hospitalist Progress Note ---
Date of Service September 15, 2021 Assessment & Plan (1) Pneumonia due to COVID-19 virus: Plan: COVID-19 pneumonia with hypoxia Dexamethasone 6 mg IV daily, day 6 Remdesivir IV per protocol, day 5, completed Baricitinib 2mg daily, day 3 Guaifenesin extended release 1200 mg p.o. twice daily Vitamin D 1000 international units p.o. daily Zinc sulfate turn 20 mg p.o. daily Lovenox 45 mg subcu every 12 hours Lasix 20mg IV daily, keep negative fluid balance encourage to prone, lay on her side breathing easier today, short term goal is to get her off high flow no IV site, numerous tries, make dexamethasone and Lasix PO tomorrow (2) Hypoxia: Plan: acute hypoxic respiratory failure, due to COVID pneumonia stable on 40L and 80% continue treatment for COVID Lasix for negative fluid balance (3) Hyperlipidemia: Plan: Continue Zetia and simvastatin (4) Hypothyroidism associated with surgical procedure: Plan: Hypothyroidism status post thyroidectomy- Continue levothyroxine 125 mcg daily (5) Asthma: Plan: See above (6) Type 2 diabetes mellitus: Plan: Hold Metformin. Place on Accu-Cheks before meals and at bedtime with NovoLog coverage per scale added nph to cover steroids . additional adjustments made 09/13 Checked hemoglobin A1c- 8.0 sugars a little better after Lantus 10 units last night, repeat today tighten Novolog coverage Admission and Anticipated Discharge Date Admission Date: September 10, 2021 Subjective patient doing okay, she is upset about losing another IV site, her veins "are terrible, my arms hurt," she doesn't want another IV d/w RN, he was able to give her the dexamethasone and Lasix IV this morning saturations are 94-95% on 40L 90%, turned her down to 85%, see if we can make more progress after the Lasix this morning she slept on her left side last night, encourage her to lay prone if possible she is able to stand up and sit on bedside commode, no severe dyspnea Review of Systems Review of Systems: All systems reviewed & are unremarkable except as noted in Subjective Respiratory: + cough, + dyspnea and + dyspnea on exertion Physical Exam Physical Exam: General: well developed, well nourished, no acute distress, comfortable Neck: supple, trachea midline, normal thyroid Lungs: clear to auscultation bilaterally, slightly tachypneic, no accessory muscle use, no distress Heart: regular S1 and S2, no murmur, peripheral pulses normal, capillary refill normal, no edema Abdomen: soft, NT, ND, + BS, no hepatomegaly, normal to percussion Extremities: normal in appearance, no cyanosis, no petechiae, strength is 5/5 bilaterally Neuro: awake, cooperative, moves all extremities, no focal motor deficits, CN II-XII intact, sensation in extremities intact, normal speech Skin: warm, dry, no rash, normal turgor Psych: Awake, alert oriented x 3, euthymic affect Results & Data Results & Data ([facility]) Vital Signs (Past 12 Hours) Vital Signs Temp Pulse Pulse Pulse Resp BP Pulse Ox 09/15/21 07:59 36.5 C 61 20 141/85 H 92 09/15/21 07:20 60 18 90 09/15/21 03:44 36.5 C 54 L 20 122/77 91 09/15/21 03:11 43 L 18 93 09/15/21 03:00 52 L 09/14/21 22:37 36.5 C 50 L 20 136/87 95 09/14/21 22:00 09/14/21 21:42 20 92 Pulse Ox 09/15/21 07:59 09/15/21 07:20 09/15/21 03:44 09/15/21 03:11 09/15/21 03:00 09/14/21 22:37 09/14/21 22:00 96 09/14/21 21:42 Laboratory Results Laboratory Results - last 24 hr 09/14/21 09/15/21 09/15/21 20:31 07:32 11:17 POC Glucose 303 H* 209 H 298 H 09/15/21 16:22 POC Glucose 316 H* Medications Administered Current Inpatient Medications Acetaminophen (Acetaminophen 325 Mg Tab) 650 mg PO Q4H PRN PRN Reason: Pain or Fever Stop: 10/10/21 22:01 Last Admin: 09/13/21 21:32 Dose: 650 mg Documented by: Albuterol (Albut/Ipratrop 3mg/0.5mg Neb 3 Ml Vial) 3 ml NEB QIDR PRN PRN Reason: Shortness Of Breath Or Wheezing Stop: 10/11/21 06:59 Baricitinib (2mg Daily X 14 Days (Egfr 30-59 Ml/Min/1.73m2)) 2 mg PO DAILY [facility]; Protocol Stop: 09/27/21 15:59 Last Admin: 09/15/21 08:57 Dose: 2 mg Documented by: Benzonatate (Benzonatate 100 Mg Capsule) 100 mg PO BID VIJAYA Stop: 10/10/21 22:01 Last Admin: 09/15/21 08:57 Dose: 100 mg Documented by: Dextrose (Dextrose 50% 50 Ml Syringe) 25 - 50 ml IV UD PRN; Protocol PRN Reason: Hypoglycemia Protocol Stop: 10/10/21 22:01 Ezetimibe (Ezetimibe 10 Mg Tablet) 10 mg PO HS [facility] Stop: 10/10/21 22:01 Last Admin: 09/14/21 20:15 Dose: 10 mg Documented by: Enoxaparin Sodium (Enoxaparin Inj 60 Mg/0.6 Ml Syr) 50 mg SQ Q12H VIJAYA Stop: 10/10/21 22:59 Last Admin: 09/15/21 11:48 Dose: 50 mg Documented by: Fish Oil ([place]-3 (Purified Fish Oil) 1 Gm Cap) 1 gm PO HS VIJAYA Stop: 10/10/21 22:01 Last Admin: 09/14/21 20:15 Dose: 1 gm Documented by: Glucagon (Glucagon For Inj 1 Mg Vial) 1 mg SQ UD PRN; Protocol PRN Reason: Hypoglycemia Protocol Stop: 10/10/21 22:01 Glucose (Glucose 10 Tabs/Tube) 4 - 8 tabs PO UD PRN; Protocol PRN Reason: Hypoglycemia Protocol Stop: 10/10/21 22:01 Glucose (Glucose 40% Gel 15 Gm Tube) 15 - 30 gm PO UD PRN; Protocol PRN Reason: Hypoglycemia Protocol Stop: 10/10/21 22:01 Guaifenesin/Codeine Phosphate (Guaifenesin/Codeine 100mg/10mg 5ml Udc) 5 ml PO Q3H PRN PRN Reason: Cough Stop: 10/10/21 22:01 Last Admin: 09/14/21 20:17 Dose: 5 ml Documented by: Dexamethasone 6 mg/ Syringe 1.5 mls @ 1 mls/min IV Q24H VIJAYA Stop: 10/11/21 08:59 Last Admin: 09/15/21 08:58 Dose: 1 mls/min Documented by: Insulin Aspart (Insulin Aspart 100 Units/Ml 3 Ml Pen) 0 units SC ACHS VIJAYA Stop: 10/10/21 22:29 Last Admin: 09/15/21 17:25 Dose: 20 units Documented by: Insulin Glargine (Insulin Glargine Solostar 100 Units/Ml 3 Ml Pen) 10 units SQ QPM VIJAYA Stop: 10/15/21 20:59 Insulin Human NPH (Insulin Human Nph) 36 units SC DAILY VIJAYA Stop: 10/14/21 08:59 Last Admin: 09/15/21 09:19 Dose: 36 units Documented by: Levothyroxine Sodium (Pt's Own Med: *Brand Synthroid* 125 Mcg Tablet) 125 mcg PO DAILYBB VIJAYA Stop: 10/14/21 06:29 Last Admin: 09/15/21 06:14 Dose: 125 mcg Documented by: Miscellaneous (Carbohydrates For Hypoglycemia ) 15 - 30 gm PO UD PRN PRN Reason: Hypoglycemia Protocol Stop: 10/10/21 22:01 Ondansetron HCl (Ondansetron Inj 2 Mg/Ml 2 Ml Vial) 4 mg IV Q6H PRN PRN Reason: Nausea Stop: 10/10/21 22:01 Simvastatin (Simvastatin 10 Mg Tab) 10 mg PO HS VIJAYA Stop: 10/10/21 22:01 Last Admin: 09/14/21 20:15 Dose: 10 mg Documented by: Vitamin D (Cholecalciferol 1,000 Units 25 Mcg Tab) 1,000 units PO QAM VIJAYA Stop: 10/11/21 08:59 Last Admin: 09/15/21 08:59 Dose: 1,000 units Documented by: Zinc Sulfate (Zinc Sulfate 220 Mg Capsule) 220 mg PO QAM VIJAYA Stop: 10/11/21 08:59 Last Admin: 09/15/21 08:59 Dose: 220 mg Documented by: PG Care Time/CCT Total # of Minutes Spent Total Time Spent: 33 Total Time Spent with Patient: Total time spent is greater than 50% in coordination of care (as documented) at patient's floor/unit and/or counseling patient: Coding Level of Care Code 33844 Subseq Hosp Care Lvl 3 (25 - SIGNIFICANT, SEPARATELY IDENTIFIABLE ) Diagnoses Pneumonia due to COVID-19 virus U07.1; J12.82 Hypoxia R09.02 Hyperlipidemia E78.5 Hypothyroidism associated with surgical procedure E89.0 Asthma J45.909 Type 2 diabetes mellitus E11.9
--- NOTE | 2021-09-15 11:23 | XRay Report ---
XR chest 1V portable CLINICAL HISTORY: hypoxia, COVID. COMPARISON STUDY: 09/10/2021 TECHNIQUE: 1 view of the chest FINDINGS: Single frontal view of the chest demonstrates the cardiomediastinal silhouette to be within normal li mits. Compared to the previous examination, there has been slight interval improvement of bilateral i nterstitial and alveolar opacities characteristic of Covid pneumonia. There is no evidence for pleura l effusion. There is no evidence for vascular congestion. There is no acute osseous pathology. IMPRESSION: Slight interval improvement of bilateral interstitial and alveolar opacities characterist ic of Covid pneumonia. ACT 112: Negative or not required by law. Electronically signed by: Brad Razo M.D. 09/15/2021 11:22 AM
[2021-09-15] MEDS: ENOXAPARIN INJ 60 MG/0.6 ML SYR SQ SCH ×2 (11:48→21:03)
[2021-09-15] MEDS ORDERED: INSULIN GLARGINE SOLOSTAR 100 UNITS/ML 3 ML PEN SQ SCH (21:00)
[2021-09-15] MEDS: guaiFENesin/CODEINE 100MG/10MG 5ML UDC PO PRN (21:03)
[2021-09-15] MEDS: SIMVASTATIN 10 MG TAB PO SCH (21:03)
[2021-09-15] MEDS: EZETIMIBE 10 MG TABLET PO SCH (21:04)
[2021-09-15] MEDS: OMEGA-3 (PURIFIED FISH OIL) 1 GM CAP PO SCH (21:04)
[2021-09-16] MEDS: LEVOTHYROXINE PO SCH (06:15)
[2021-09-16] MEDS: dexAMETHasone 1 MG TAB PO SCH (09:40)
[2021-09-16] MEDS: FUROSEMIDE 40 MG TAB PO SCH (09:40)
[2021-09-16] MEDS: INSULIN ASPART 100 UNITS/ML 3 ML PEN SC SCH ×4 (09:41→20:31)
[2021-09-16] MEDS: INSULIN HUMAN NPH SC SCH (09:44)
[2021-09-16] MEDS: CHOLECALCIFEROL 1,000 UNITS 25 MCG TAB PO SCH (09:46)
[2021-09-16] MEDS: ZINC SULFATE 220 MG CAPSULE PO SCH (09:46)
[2021-09-16] MEDS: BENZONATATE 100 MG CAPSULE PO SCH ×2 (09:47→19:54)
[2021-09-16] MEDS: 2mg Daily x 14 days (eGFR 30-59 mL/min/1.73m2) PO SCH (09:57)
--- NOTE | 2021-09-16 12:14 | Hospitalist Progress Note ---
Date of Service September 16, 2021 Assessment & Plan (1) Pneumonia due to COVID-19 virus: Plan: COVID-19 pneumonia with hypoxia Dexamethasone 6 mg IV daily, day 7 (changed to PO on 09/16 due to poor IV access, refusing PICC or US guided) Remdesivir IV per protocol, day 5, completed Baricitinib 2mg daily, day 4 Guaifenesin extended release 1200 mg p.o. twice daily Vitamin D 1000 international units p.o. daily Zinc sulfate turn 20 mg p.o. daily Lovenox 45 mg subcu every 12 hours Lasix 40mg PO daily, good response down to 30L and 70% today (2) Hypoxia: Plan: acute hypoxic respiratory failure, due to COVID pneumonia down to 30L and 70% today continue treatment for COVID Lasix for negative fluid balance (3) Hyperlipidemia: Plan: Continue Zetia and simvastatin (4) Hypothyroidism associated with surgical procedure: Plan: Hypothyroidism status post thyroidectomy- Continue levothyroxine 125 mcg daily (5) Asthma: Plan: See above (6) Type 2 diabetes mellitus: Plan: Hold Metformin. Place on Accu-Cheks before meals and at bedtime with NovoLog coverage per scale added nph to cover steroids . additional adjustments made 09/13 Checked hemoglobin A1c- 8.0 sugars a little better after Lantus 10 units HS but then hyperglycemic in afternoon 09/15 tighten Novolog coverage and sugars now better Admission and Anticipated Discharge Date Admission Date: September 10, 2021 Subjective patient feeling better, she appreciates not having an IV, her arms feel better eating better, coughing up more sputum today, she is able to get OOB to the commode got winded getting cleaned up today sugars are better with tighter Novolog coverage, discussed that PO dexamethasone should have less of a hyperglycemic effect Review of Systems Review of Systems: All systems reviewed & are unremarkable except as noted in Subjective Respiratory: + cough, + dyspnea, + dyspnea on exertion and + sputum production Physical Exam Physical Exam: General: well developed, well nourished, no acute distress, comfortable Neck: supple, trachea midline, normal thyroid Lungs: clear to auscultation bilaterally, slightly tachypneic, no accessory muscle use, no distress Heart: regular S1 and S2, no murmur, peripheral pulses normal, capillary refill normal, no edema Abdomen: soft, NT, ND, + BS, no hepatomegaly, normal to percussion Extremities: normal in appearance, no cyanosis, no petechiae, strength is 5/5 bilaterally Neuro: awake, cooperative, moves all extremities, no focal motor deficits, CN II-XII intact, sensation in extremities intact, normal speech Skin: warm, dry, no rash, normal turgor Psych: Awake, alert oriented x 3, euthymic affect Results & Data Results & Data ([facility]) Vital Signs (Past 12 Hours) Vital Signs Temp Pulse Pulse Pulse Resp BP Pulse Ox 09/16/21 11:56 36.8 C 53 L 21 97/67 L 96 09/16/21 10:38 79 20 90 09/16/21 07:57 91 H 19 89 L 09/16/21 07:34 36.6 C 60 20 115/77 90 09/16/21 07:00 67 09/16/21 06:41 55 L 09/16/21 04:18 36.6 C 58 L 20 128/78 93 09/16/21 03:24 44 L 18 93 Laboratory Results Laboratory Results - last 24 hr 09/15/21 09/15/21 09/16/21 16:22 21:01 07:31 POC Glucose 316 H* 255 H 196 H 09/16/21 11:56 POC Glucose 248 H Medications Administered Current Inpatient Medications Acetaminophen (Acetaminophen 325 Mg Tab) 650 mg PO Q4H PRN PRN Reason: Pain or Fever Stop: 10/10/21 22:01 Last Admin: 09/13/21 21:32 Dose: 650 mg Documented by: Albuterol (Albut/Ipratrop 3mg/0.5mg Neb 3 Ml Vial) 3 ml NEB QIDR PRN PRN Reason: Shortness Of Breath Or Wheezing Stop: 10/11/21 06:59 Baricitinib (2mg Daily X 14 Days (Egfr 30-59 Ml/Min/1.73m2)) 2 mg PO DAILY VIJAYA; Protocol Stop: 09/27/21 15:59 Last Admin: 09/16/21 09:57 Dose: 2 mg Documented by: Benzonatate (Benzonatate 100 Mg Capsule) 100 mg PO BID VIJAYA Stop: 10/10/21 22:01 Last Admin: 09/16/21 09:47 Dose: 100 mg Documented by: Dexamethasone (Dexamethasone 1 Mg Tab) 6 mg PO QAM VIJAYA Stop: 10/16/21 08:59 Last Admin: 09/16/21 09:40 Dose: 6 mg Documented by: Dextrose (Dextrose 50% 50 Ml Syringe) 25 - 50 ml IV UD PRN; Protocol PRN Reason: Hypoglycemia Protocol Stop: 10/10/21 22:01 Ezetimibe (Ezetimibe 10 Mg Tablet) 10 mg PO HS VIJAYA Stop: 10/10/21 22:01 Last Admin: 09/15/21 21:04 Dose: 10 mg Documented by: Enoxaparin Sodium (Enoxaparin Inj 60 Mg/0.6 Ml Syr) 50 mg SQ Q12H VIJAYA Stop: 10/10/21 22:59 Last Admin: 09/15/21 21:03 Dose: 50 mg Documented by: Fish Oil ([place]-3 (Purified Fish Oil) 1 Gm Cap) 1 gm PO HS VIJAYA Stop: 10/10/21 22:01 Last Admin: 09/15/21 21:04 Dose: 1 gm Documented by: Furosemide (Furosemide 40 Mg Tab) 40 mg PO QAM VIJAYA Stop: 10/16/21 08:59 Last Admin: 09/16/21 09:40 Dose: 40 mg Documented by: Glucagon (Glucagon For Inj 1 Mg Vial) 1 mg SQ UD PRN; Protocol PRN Reason: Hypoglycemia Protocol Stop: 10/10/21 22:01 Glucose (Glucose 10 Tabs/Tube) 4 - 8 tabs PO UD PRN; Protocol PRN Reason: Hypoglycemia Protocol Stop: 10/10/21 22:01 Glucose (Glucose 40% Gel 15 Gm Tube) 15 - 30 gm PO UD PRN; Protocol PRN Reason: Hypoglycemia Protocol Stop: 10/10/21 22:01 Guaifenesin/Codeine Phosphate (Guaifenesin/Codeine 100mg/10mg 5ml Udc) 5 ml PO Q3H PRN PRN Reason: Cough Stop: 10/10/21 22:01 Last Admin: 09/15/21 21:03 Dose: 5 ml Documented by: Insulin Aspart (Insulin Aspart 100 Units/Ml 3 Ml Pen) 0 units SC ACHS VIJAYA Stop: 10/10/21 22:29 Last Admin: 09/16/21 09:41 Dose: 11 units Documented by: Insulin Glargine (Insulin Glargine Solostar 100 Units/Ml 3 Ml Pen) 10 units SQ QPM VIJAYA Stop: 10/15/21 20:59 Last Admin: 09/15/21 21:00 Dose: 10 units Documented by: Insulin Human NPH (Insulin Human Nph) 36 units SC DAILY [facility] Stop: 10/14/21 08:59 Last Admin: 09/16/21 09:44 Dose: 36 units Documented by: Levothyroxine Sodium (Pt's Own Med: *Brand Synthroid* 125 Mcg Tablet) 125 mcg PO DAILYBB [facility] Stop: 10/14/21 06:29 Last Admin: 09/16/21 06:15 Dose: 125 mcg Documented by: Miscellaneous (Carbohydrates For Hypoglycemia ) 15 - 30 gm PO UD PRN PRN Reason: Hypoglycemia Protocol Stop: 10/10/21 22:01 Ondansetron HCl (Ondansetron Inj 2 Mg/Ml 2 Ml Vial) 4 mg IV Q6H PRN PRN Reason: Nausea Stop: 10/10/21 22:01 Simvastatin (Simvastatin 10 Mg Tab) 10 mg PO HS [facility] Stop: 10/10/21 22:01 Last Admin: 09/15/21 21:03 Dose: 10 mg Documented by: Vitamin D (Cholecalciferol 1,000 Units 25 Mcg Tab) 1,000 units PO QAM VIJAYA Stop: 10/11/21 08:59 Last Admin: 09/16/21 09:46 Dose: 1,000 units Documented by: Zinc Acetate/Diphenhydramine (Diphenhydramine 2%/Zinc 0.1% Cream 28gm Tube) 1 appln EXT BID PRN PRN Reason: itching Stop: 10/15/21 22:56 Last Admin: 09/15/21 23:24 Dose: 1 appln Documented by: Zinc Sulfate (Zinc Sulfate 220 Mg Capsule) 220 mg PO QAM [facility] Stop: 10/11/21 08:59 Last Admin: 09/16/21 09:46 Dose: 220 mg Documented by: PG Care Time/CCT Total # of Minutes Spent Total Time Spent with Patient: Total time spent is greater than 50% in coordination of care (as documented) at patient's floor/unit and/or counseling patient: Coding Level of Care Code 17934 Subseq Hosp Care Lvl 2 Diagnoses Pneumonia due to COVID-19 virus U07.1; J12.82 Hypoxia R09.02 Hyperlipidemia E78.5 Hypothyroidism associated with surgical procedure E89.0 Asthma J45.909 Type 2 diabetes mellitus E11.9
[2021-09-16] MEDS: ENOXAPARIN 80 MG/0.8 ML SYR SQ SCH (15:13)
[2021-09-16] MEDS: OMEGA-3 (PURIFIED FISH OIL) 1 GM CAP PO SCH (19:54)
[2021-09-16] MEDS: SIMVASTATIN 10 MG TAB PO SCH (19:54)
[2021-09-16] MEDS: EZETIMIBE 10 MG TABLET PO SCH (19:54)
[2021-09-16] MEDS: guaiFENesin/CODEINE 100MG/10MG 5ML UDC PO PRN (19:54)
[2021-09-16] MEDS: INSULIN GLARGINE SOLOSTAR 100 UNITS/ML 3 ML PEN SQ SCH (20:32)
[2021-09-17] MEDS: ENOXAPARIN 80 MG/0.8 ML SYR SQ SCH (02:25)
[2021-09-17] MEDS: LEVOTHYROXINE PO SCH (06:19)
[2021-09-17] MEDS ORDERED: INSULIN HUMAN NPH SC SCH (09:00)
[2021-09-17] MEDS: INSULIN ASPART 100 UNITS/ML 3 ML PEN SC SCH ×4 (09:07→21:17)
[2021-09-17] MEDS: ENOXAPARIN INJ 60 MG/0.6 ML SYR SQ SCH ×2 (09:09→20:54)
[2021-09-17] MEDS: 2mg Daily x 14 days (eGFR 30-59 mL/min/1.73m2) PO SCH (09:09)
[2021-09-17] MEDS: BENZONATATE 100 MG CAPSULE PO SCH ×2 (09:10→20:54)
[2021-09-17] MEDS: ZINC SULFATE 220 MG CAPSULE PO SCH (09:10)
[2021-09-17] MEDS: CHOLECALCIFEROL 1,000 UNITS 25 MCG TAB PO SCH (09:10)
[2021-09-17] MEDS: dexAMETHasone 1 MG TAB PO SCH (09:10)
[2021-09-17] MEDS: FUROSEMIDE 40 MG TAB PO SCH (09:11)
--- NOTE | 2021-09-17 10:02 | Hospitalist Progress Note ---
Date of Service September 17, 2021 Assessment & Plan (1) Pneumonia due to COVID-19 virus: Plan: COVID-19 pneumonia with hypoxia Dexamethasone 6 mg IV daily, day 7 (changed to PO on 09/16 due to poor IV access, refusing PICC or US guided) Remdesivir IV per protocol, day 5, completed Baricitinib 2mg daily, last dose 09/26/21 Guaifenesin extended release 1200 mg p.o. twice daily Vitamin D 1000 international units p.o. daily Zinc sulfate turn 20 mg p.o. daily Lovenox 45 mg subcu every 12 hours Lasix 40mg PO daily, good response down to 15 L wall NC (2) Hypoxia: Plan: acute hypoxic respiratory failure, due to COVID pneumonia Improving with lessening oxygen demands Lasix for negative fluid balance (3) Hyperlipidemia: Plan: Continue Zetia and simvastatin (4) Hypothyroidism associated with surgical procedure: Plan: Hypothyroidism status post thyroidectomy- Continue levothyroxine 125 mcg daily (5) Asthma: Plan: respiratory distress seems to be from covid pnemonia and not aspirin (6) Type 2 diabetes mellitus: Plan: Hold Metformin. Place on Accu-Cheks before meals and at bedtime with NovoLog coverage per scale added nph to cover steroids . additional adjustments made 09/13 Checked hemoglobin A1c- 8.0 sugars a little better after Lantus 10 units HS but then hyperglycemic in afternoon 09/15 tighten Novolog coverage and sugars now better Admission and Anticipated Discharge Date Admission Date: September 10, 2021 Subjective PT seems to have turned the corner and looks much better, pt now on wall oxygen much less work of breathing Review of Systems Review of Systems: moderate respiratory distress and fatigue no headache, no visual changes no speech or swallowing issues no chest pain, pressure or palpitations shortness of breath, non productive cough no wheezes some abdominal pain when laying prone,no nausea or vomiting,resolved diarrhea no dysuria, hematuria or frequency no focal joint pain or swelling no back pain, CVA tenderness or radicular pain no bruising, bleeding or rashes no focal signs of weakness or numbness or altered sensation no complaints of anxiety or depression.. Physical Exam Physical Exam: The patient appeared fatigued and frustrated Vital signs as documented. Head exam is normocephalic atraumatic Neck is without JVD, thyromegaly, or carotid bruits. Lungs are crackles bilaterally, persistently Cardiac exam, Rhythm is regular.. No murmurs, rubs or gallops. Abdominal exam reveals normal bowel sounds, soft some reproduced abdominal tenderness Extremities are nonedematous and both pedal pulses are present Neurologic exam is alert and oriented, no focal loss of strength or sensation Skin is without bruises or rashes Psychologically is without concerns for anxiety or depression.. Results & Data Results & Data ([facility]) Vital Signs (Past 12 Hours) Vital Signs Temp Pulse Pulse Pulse Resp BP Pulse Ox 09/17/21 07:34 98.1 F 58 L 21 111/75 90 09/17/21 04:13 54 L 09/17/21 03:09 97.9 F 68 15 120/80 89 L 09/16/21 23:15 97.9 F 57 L 12 116/79 94 09/16/21 22:07 18 97 PG Care Time/CCT Total # of Minutes Spent Total Time Spent with Patient: Total time spent is greater than 50% in coordination of care (as documented) at patient's floor/unit and/or counseling patient: Coding Level of Care Code 59396 Subseq Hosp Care Lvl 2 Diagnoses Pneumonia due to COVID-19 virus U07.1; J12.82 Hypoxia R09.02 Hyperlipidemia E78.5 Hypothyroidism associated with surgical procedure E89.0 Asthma J45.909 Type 2 diabetes mellitus E11.9
[2021-09-17] MEDS ORDERED: ENOXAPARIN INJ 60 MG/0.6 ML SYR SQ SCH (15:00)
[2021-09-17] MEDS: OMEGA-3 (PURIFIED FISH OIL) 1 GM CAP PO SCH (20:54)
[2021-09-17] MEDS: EZETIMIBE 10 MG TABLET PO SCH (20:54)
[2021-09-17] MEDS: SIMVASTATIN 10 MG TAB PO SCH (20:54)
[2021-09-17] MEDS: INSULIN GLARGINE SOLOSTAR 100 UNITS/ML 3 ML PEN SQ SCH (21:17)
[2021-09-18] MEDS ORDERED: PHARMACY GLYCEMIC MGMT CONSULT PRN (04:33)
[2021-09-18] MEDS: LEVOTHYROXINE PO SCH (05:55)
[2021-09-18] MEDS: BENZONATATE 100 MG CAPSULE PO SCH ×2 (08:46→20:56)
[2021-09-18] MEDS: CHOLECALCIFEROL 1,000 UNITS 25 MCG TAB PO SCH (08:46)
[2021-09-18] MEDS: FUROSEMIDE 40 MG TAB PO SCH (08:47)
[2021-09-18] MEDS: ZINC SULFATE 220 MG CAPSULE PO SCH (08:48)
[2021-09-18] MEDS: dexAMETHasone 1 MG TAB PO SCH (08:48)
[2021-09-18] MEDS: INSULIN ASPART 100 UNITS/ML 3 ML PEN SC SCH ×4 (08:54→20:57)
[2021-09-18] MEDS: ENOXAPARIN INJ 60 MG/0.6 ML SYR SQ SCH ×2 (08:59→20:55)
[2021-09-18] MEDS ORDERED: INSULIN HUMAN NPH SC SCH (09:00)
[2021-09-18] MEDS: 2mg Daily x 14 days (eGFR 30-59 mL/min/1.73m2) PO SCH (09:03)
--- NOTE | 2021-09-18 14:08 | Pharmacy Report ---
Pharmacy Glycemic Short Note 2 - Date of Service September 18, 2021 - Glycemic Short BSG Results (Last 24 hours): 09/17/21 09/17/21 09/18/21 16:34 20:37 08:36 POC Glucose 282 H 371 H* 200 H 09/18/21 11:59 POC Glucose 202 H OUTPATIENT ANTIDIABETIC REGIMEN: * Metformin 1000 mg PO BIDM * Trulicity 1.5 mg weekly on Sundays ASSESSMENT: * 46 y/o F admitted for Covid-19 pneumonia. Pt with history of Type 2 diabetes managed at home on oral Metformin and Trulicity, both of which are on hold while admitted. Pharmacy consulted overnight for glycemic management. * Yesterday, patient received total of 146 units yesterday; 40 units NPH to cover for oral Dexamethasone therapy + 12 units of Lantus at HS + 94 units bolus Novolog. BSGs trended up to 371 mg/dl at HS yesterday. * Fasting BSG today was elevated at 200 mg/dl. Oral Decadron continues. NPH dose increased to 50 units this AM. Also Lantus dose increased to 20 units for HS tonight; this dose is based on wt and stress between 2 and 3. Expect fasting BSG to improve tomorrow. * Novolog CR also tightened this AM. Expect post prandial BSGs to trend down this evening. PLAN FOR INPATIENT GLYCEMIC CONTROL: * Hold outpatient oral and SQ diabetes medications * Basal insulin: increased * Lantus 20 units SQ HS * NPH 50 units SQ this AM with oral Decadron * Bolus insulin: tightened CR * NovoLog per scale ACHS or Q6hrs while NPO * Goal Range: Low 110 mg/dL - High 140 mg/dL * Correction Factor: 12 mg/dL/unit * Nutritional / Prandial insulin per carb ratio of 1 unit per 3.5 grams CHO consumed PLAN FOR DISCHARGE: * HbA1c = 8%. Goal A1c is less than 7% for this patient given her age and co- morbidities. * Continue Metformin 1000 mg PO BID with meals. * Recommend increasing Trulicity SQ to 3 mg weekly as long as patient has been compliant on her current home dose and is not reporting hypoglycemia at home.
--- NOTE | 2021-09-18 19:11 | Hospitalist Progress Note ---
Date of Service September 18, 2021 Assessment & Plan (1) Pneumonia due to COVID-19 virus: Plan: COVID-19 pneumonia with hypoxia Dexamethasone 6 mg IV daily, day 7 (changed to PO on 09/16 due to poor IV access, refusing PICC or US guided) Remdesivir IV per protocol, day 5, completed Baricitinib 2mg daily, last dose 09/26/21 Guaifenesin extended release 1200 mg p.o. twice daily Vitamin D 1000 international units p.o. daily Zinc sulfate turn 20 mg p.o. daily Lovenox 45 mg subcu every 12 hours Lasix 40mg PO daily, good response tried a 2 step and required 4 l at rest and 5 with exertion but felt horrible and almost fell over (2) Hypoxia: Plan: acute hypoxic respiratory failure, due to COVID pneumonia Improving with lessening oxygen demands Lasix for negative fluid balance (3) Hyperlipidemia: Plan: Continue Zetia and simvastatin (4) Hypothyroidism associated with surgical procedure: Plan: Hypothyroidism status post thyroidectomy- Continue levothyroxine 125 mcg daily (5) Asthma: Plan: respiratory distress seems to be from covid pnemonia and not aspirin (6) Type 2 diabetes mellitus: Plan: Hold Metformin. Place on Accu-Cheks before meals and at bedtime with NovoLog coverage per scale added nph to cover steroids . additional adjustments made 09/13 Checked hemoglobin A1c- 8.0 appreciate glycemic pharmacy coverage Admission and Anticipated Discharge Date Admission Date: September 10, 2021 Subjective pt was feeling well but did poorly with 2 step test and almost had a syncopal episode, agrees she is not doing well enough to go home Review of Systems Review of Systems: moderate respiratory distress and fatigue no headache, no visual changes no speech or swallowing issues no chest pain, pressure or palpitations shortness of breath, non productive cough no wheezes some abdominal pain when laying prone,no nausea or vomiting,resolved diarrhea no dysuria, hematuria or frequency no focal joint pain or swelling no back pain, CVA tenderness or radicular pain no bruising, bleeding or rashes no focal signs of weakness or numbness or altered sensation no complaints of anxiety or depression.. Physical Exam Physical Exam: The patient appeared fatigued and frustrated Vital signs as documented. Head exam is normocephalic atraumatic Neck is without JVD, thyromegaly, or carotid bruits. Lungs are crackles bilaterally, persistently Cardiac exam, Rhythm is regular.. No murmurs, rubs or gallops. Abdominal exam reveals normal bowel sounds, soft some reproduced abdominal tenderness Extremities are nonedematous and both pedal pulses are present Neurologic exam is alert and oriented, no focal loss of strength or sensation Skin is without bruises or rashes Psychologically is without concerns for anxiety or depression.. Results & Data Results & Data ([facility]) Vital Signs (Past 12 Hours) Vital Signs Temp Pulse Pulse Pulse Pulse Pulse Pulse 09/18/21 16:51 98.1 F 66 09/18/21 14:00 63 09/18/21 12:41 65 67 64 90 09/18/21 11:58 97.9 F 60 09/18/21 08:00 54 L 09/18/21 07:59 97.5 F L 58 L Pulse Pulse Pulse Resp Resp Resp Resp 09/18/21 16:51 18 09/18/21 14:00 09/18/21 12:41 87 60 72 16 16 16 09/18/21 11:58 18 09/18/21 08:00 09/18/21 07:59 16 Resp Resp Resp Resp BP Pulse Ox Pulse Ox 09/18/21 16:51 127/81 89 L 09/18/21 14:00 09/18/21 12:41 20 20 16 16 87 L 09/18/21 11:58 130/84 91 09/18/21 08:00 09/18/21 07:59 120/73 88 L Pulse Ox Pulse Ox Pulse Ox Pulse Ox Pulse Ox Pulse Ox 09/18/21 16:51 09/18/21 14:00 09/18/21 12:41 87 L 90 90 86 L 89 L 83 L 09/18/21 11:58 09/18/21 08:00 09/18/21 07:59 PG Care Time/CCT Total # of Minutes Spent Total Time Spent with Patient: Total time spent is greater than 50% in coordination of care (as documented) at patient's floor/unit and/or counseling patient: Coding Level of Care Code 84324 Subseq Hosp Care Lvl 2 Diagnoses Pneumonia due to COVID-19 virus U07.1; J12.82 Hypoxia R09.02 Hyperlipidemia E78.5 Hypothyroidism associated with surgical procedure E89.0 Asthma J45.909 Type 2 diabetes mellitus E11.9
[2021-09-18] MEDS: EZETIMIBE 10 MG TABLET PO SCH (20:56)
[2021-09-18] MEDS: SIMVASTATIN 10 MG TAB PO SCH (20:56)
[2021-09-18] MEDS: OMEGA-3 (PURIFIED FISH OIL) 1 GM CAP PO SCH (20:56)
[2021-09-18] MEDS ORDERED: INSULIN GLARGINE SOLOSTAR 100 UNITS/ML 3 ML PEN SQ SCH (21:00)
[2021-09-19] MEDS: LEVOTHYROXINE PO SCH (06:27)
[2021-09-19] MEDS ORDERED: INSULIN HUMAN NPH SC SCH (09:00)
[2021-09-19] MEDS: INSULIN ASPART 100 UNITS/ML 3 ML PEN SC SCH ×3 (09:19→17:18)
[2021-09-19] MEDS: 2mg Daily x 14 days (eGFR 30-59 mL/min/1.73m2) PO SCH (09:23)
[2021-09-19] MEDS: BENZONATATE 100 MG CAPSULE PO SCH (09:25)
[2021-09-19] MEDS: CHOLECALCIFEROL 1,000 UNITS 25 MCG TAB PO SCH (09:25)
[2021-09-19] MEDS: ZINC SULFATE 220 MG CAPSULE PO SCH (09:26)
[2021-09-19] MEDS: FUROSEMIDE 40 MG TAB PO SCH (09:26)
[2021-09-19] MEDS: dexAMETHasone 1 MG TAB PO SCH (09:27)
[2021-09-19] MEDS: ENOXAPARIN INJ 60 MG/0.6 ML SYR SQ SCH (09:27)
--- NOTE | 2021-09-19 14:11 | Pharmacy Report ---
Pharmacy Glycemic Short Note 2 - Date of Service September 19, 2021 - Glycemic Short BSG Results (Last 24 hours): 09/18/21 09/18/21 09/19/21 16:26 20:45 08:13 POC Glucose 352 H* 313 H* 106 H 09/19/21 11:51 POC Glucose 144 H OUTPATIENT ANTIDIABETIC REGIMEN: * Metformin 1000 mg PO BIDM * Trulicity 1.5 mg weekly on Sundays ASSESSMENT: 09/19: * Patient received total of 155 units of insulin yesterday; basal: 50 units of NPH and 20 units of Lantus + 85 units of bolus. * Fasting BSG today was 106 mg/dl. Reduced Lantus dose slightly to 18 units at HS. * Post-prandial BSGs last night were elevated above 300 mg/dl. * Novolog CF and CR tightened this AM. NPH dose increased further to 60 units with oral Decadron. Expect better glycemic control this evening. 09/18/21 * 46 y/o F admitted for Covid-19 pneumonia. Pt with history of Type 2 diabetes managed at home on oral Metformin and Trulicity, both of which are on hold while admitted. Pharmacy consulted overnight for glycemic management. * Yesterday, patient received total of 146 units yesterday; 40 units NPH to cover for oral Dexamethasone therapy + 12 units of Lantus at HS + 94 units bolus Novolog. BSGs trended up to 371 mg/dl at HS yesterday. * Fasting BSG today was elevated at 200 mg/dl. Oral Decadron continues. NPH dose increased to 50 units this AM. Also Lantus dose increased to 20 units for HS tonight; this dose is based on wt and stress between 2 and 3. Expect fasting BSG to improve tomorrow. * Novolog CR also tightened this AM. Expect post prandial BSGs to trend down this evening. PLAN FOR INPATIENT GLYCEMIC CONTROL: * Hold outpatient oral and SQ diabetes medications * Basal insulin: increased NPH * Lantus 18 units SQ HS * NPH 60 units SQ this AM with oral Decadron * Bolus insulin: tightened CF and CR * NovoLog per scale ACHS or Q6hrs while NPO * Goal Range: Low 110 mg/dL - High 140 mg/dL * Correction Factor: 10 mg/dL/unit * Nutritional / Prandial insulin per carb ratio of 1 unit per 3 grams CHO consumed PLAN FOR DISCHARGE: * HbA1c = 8%. Goal A1c is less than 7% for this patient given her age and co- morbidities. * Continue Metformin 1000 mg PO BID with meals. * Recommend increasing Trulicity SQ to 3 mg weekly as long as patient has been compliant on her current home dose and is not reporting hypoglycemia at home.
--- NOTE | 2021-09-19 18:02 | Discharge Summary ---
Date of Service September 19, 2021 Admission HPI Per Admitting Provider The patient is a 46-year-old female with a past medical history including diabetes mellitus type 2, status post thyroidectomy, iatrogenic hypothyroidism, asthma, irritable bowel syndrome, hyperlipidemia and obesity. She developed symptoms 3 days ago, was seen at [facility] emergency department 2 days ago, and was diagnosed with COVID-19 pneumonia at that point, and was sent home with orders to re due to worsening symptoms, she presents to the [facility] ED today. Review of laboratories from [facility] confirms COVID-19 infection. Chest x-ray/CT angiography chest PE protocol: Moderate to extensive bilateral groundglass opacities. No PE. Hepatosplenomegaly. Fatty liver. From the ED the patient received the following: Dexamethasone 10 mg IV, NSS 500 mL Principal Diagnosis Acute hypoxic respiratory failure COVID-19 positive test (U07.1, COVID-19) with Acute Pneumonia (J12.89, Other viral pneumonia) (If respiratory failure or sepsis present, add as separate assessment) uncontrolled diabetes secondary to steroid use Discharge Exam The patient appeared well Vital signs as documented. Lungs are still with some crackles but lessening from previous Cardiac exam, Rhythm is regular.. No murmurs, rubs or gallops. Abdominal exam reveals normal bowel sounds, soft non tender, no masses Extremities are nonedematous and both pedal pulses are normal. Neurologic exam is alert and oriented, no focal loss of strength or sensation Skin is without bruises or rashes Psychologically is without concerns for anxiety or depression. Discharge Data Allergies Allergy/AdvReac Type Severity Reaction Status Date / Time Penicillins Allergy HIVES Verified 09/10/21 19:06 Consultations 09/10/21 22:33 ED Decision to Admit Stat Ordered Studies 09/10/21 20:29 CT angio chest PE protocol Stat Hospital Course (1) Pneumonia due to COVID-19 virus: COVID-19 pneumonia with hypoxia Dexamethasone 6 mg IV completed 10-day course Remdesivir IV per protocol, day 5, completed Baricitinib 2mg daily, hypoxemia resolved will discontinue Patient was given a two-step oxygen requirement test today which did not require any supplemental oxygen with rest or exertion (2) Hypoxia: acute hypoxic respiratory failure, due to COVID pneumonia Improving with transition to room air (3) Hyperlipidemia: Continue Zetia and simvastatin (4) Hypothyroidism associated with surgical procedure: Hypothyroidism status post thyroidectomy- Continue levothyroxine 125 mcg daily (5) Asthma: respiratory distress seems to be from covid pnemonia and not aspirin (6) Type 2 diabetes mellitus: continue home medications carbohydrate diet Total Time Total Time Spent Total Time Spent (In Minutes): It required greater than 30 minutes to prepare this patient for discharge Discharge Plan Discharge Items Patient Disposition: Home - Self-Care Reason For Visit: COVID-19 PNEUMONIA WITH HYPOXIA Discharge Diagnosis: covid pneumonia Activity: Per Instructions section Activity Comment: slowly increase physical acitivty Non-emergency contact: Primary Care Provider Call non-emergency contact if: your symptoms worsen and you have a fever Follow-up/Referrals: Harrison Mckeon DO [Primary Care Provider] - Diet: Carb Consistent or DM2 Addtl Attending Provider Instructions: you should continue to rest and recover follow up with your primary care doctor in one week to determine how much longer you should stay off work please wear a mask in public, and wear a mask and keep a distance from family me mbers until you are feeling improved for two consecutive days please resume your home diabetic care regimen and make extra thoughtful choices regarding carbohydrate intake as while you recover you are still at risk to have high blood sugar levels while you are recovering we ask that you hold your water pill, hydrochlorothiazie, until you see your doctor Pending Studies at Discharge: No Stand-Alone Forms: [employer], Smoking Cessation Medications and DC Order Prescriptions: Continued pseudoephedrine-ibuprofen 30-200 mg Tablet 1 tab PO Q4H PRN (Reason: Cough) RF: 0 simvastatin 10 mg tablet 10 mg PO HS RF: 0 acetaminophen 500 mg Tablet 1,000 mg PO Q6H PRN (Reason: Pain) RF: 0 benzonatate 100 mg Capsule 100 mg PO BID RF: 0 levothyroxine [Synthroid] 125 mcg tablet 125 mcg PO QAM RF: 0 metformin 500 mg tablet extended release 24 hr 1,000 mg PO HS RF: 0 lisinopril 2.5 mg tablet 2.5 mg PO HS RF: 0 ezetimibe 10 mg tablet 10 mg PO HS RF: 0 omega-3 fatty acids-fish oil 684-1,200 mg Capsule,Delayed Release(Dr/Ec) 1 cap PO HS RF: 0 Trulicity 1.5 mg/0.5 mL pen injector 1.5 mg SUBCUT WK RF: 0 Discontinued hydrochlorothiazide 12.5 mg capsule 12.5 mg PO HS RF: 0 Discharge Orders: Discharge Order (Routine); Ordered 09/19/21 Ordered By: Dangelo Padron/Other Patient Handouts: A1C, High Blood Sugar (Hyperglycemia), Managing Type 2 Diabetes Admission Data Admit Date/Time: 09/10/21 20:13 Attending Provider: Dangelo Alvarado Admit Provider: Gage Haro Primary Care Provider: Harrison Mckeon Other Providers: Gage Haro Other Interventions: Discharge Summary Assessment (RN) Last Done: 09/19/21 17:42 Coding Level of Care Code D/C DAY MANAGEMENT >30 MINS Diagnoses Pneumonia due to COVID-19 virus U07.1; J12.82 Hypoxia R09.02 Hyperlipidemia E78.5 Hypothyroidism associated with surgical procedure E89.0 Asthma J45.909 Type 2 diabetes mellitus E11.9
[2021-09-19] MEDS ORDERED: INSULIN GLARGINE SOLOSTAR 100 UNITS/ML 3 ML PEN SQ SCH (21:00)
== END 2021-09-19 18:00 | disposition home or self-care (01) | DRG 177 ==
LOC: ED 17:34 → 2S 20:11 → SUATTDRO 20:11 → 2S 21:21